=== PATIENT | male | born 1945 | race Caucasian/White ===

== ENCOUNTER → 2018-06-27 08:04 | Outpatient (CLI) | payer MEDICARE, BC, SELFPAY ==
[2018-06-27 08:55] LABS: Add Manual Diff / Slide Review NO; Basophils Percent Auto 1.2 % (0-2); Eosinophils Percent Auto 7.5 % (2-4); Hematocrit 44.2 % (41-53); Hemoglobin 14.5 g/dL (13.5-17.5); Lymphocytes Percent Auto 27.8 % (25-40); Mean Corpuscular HGB Conc 32.8 % (30-36); Mean Corpuscular Volume 88.5 fL (80-100); Monocytes Percent Auto 6.4 % (3-14); Neutrophils Absolute Auto 2500 /uL (1500-7000); Neutrophils Percent Auto 57.1 % (50-75); Platelet Count 231 X10^3/uL (150-400); Red Cell Distribution Width 12.5 % (11.6-14.8); White Blood Cell Count 4.4 X10^3/uL (4.5-11.0)
[2018-06-27 09:16] LABS: Alanine Aminotransferase 44 IU/L (21-72); Albumin 4.3 g/dL (3.5-5.0); Albumin Globulin Ratio 1.9 (1.0-2.8); Alkaline Phosphatase 60 U/L (38-126); Aspartate Aminotransferase 38 IU/L (17-59); Bilirubin Total 0.6 mg/dL (0.2-1.3); Blood Urea Nitrogen 21 mg/dL (9-20); Calcium 9.4 mg/dL (8.4-10.2); Carbon Dioxide 28 mmol/L (22-32); Chloride 102 mmol/L (98-107); Cholesterol 151 mg/dL (140-199); Estimated Glomerular Filt Rate > 60.0 mL/min (>60); Globulin 2.3 g/dL (1.7-4.1); Glucose 95 mg/dL (80-110); HDL Cholesterol 57 mg/dL (40-60); HEMOLYSIS < 15 (0-50); LDL Cholesterol Calculated 83 mg/dL (<100); Potassium 4.5 mmol/L (3.4-5.1); Sodium 139 mmol/L (137-145); Total Protein 6.6 g/dL (6.3-8.2); Triglycerides 57 mg/dL (35-150)
[2018-06-27 09:39] LABS: Prostate Specific Antigen 0.261 ng/mL (0.10-4.00)
== END ==
PROVIDERS: PCP Internal Medicine; Visit Provider Internal Medicine
DX: Z00.00 Encounter for general adult medical examination without abnormal findings (principal); I10 Essential (primary) hypertension; E78.00 Pure hypercholesterolemia, unspecified; R97.20 Elevated prostate specific antigen [PSA]
CPT/HCPCS: 36415; 80053; 80061; 84153; 85025

== ENCOUNTER → 2018-12-20 07:46 | Outpatient (CLI) | payer MEDICARE, BC, SELFPAY ==
[2018-12-20 09:13] LABS: Add Manual Diff / Slide Review NO; Basophils Absolute Auto 100 /uL (0-100); Eosinophils Absolute Auto 500 /uL (0-450); Eosinophils Percent Auto 9.7 % (2-4); Hematocrit 44.4 % (41-53); Hemoglobin 14.6 g/dL (13.5-17.5); Lymphocytes Absolute Auto 1400 /uL (1100-4500); Lymphocytes Percent Auto 26.1 % (25-40); Mean Corpuscular HGB Conc 32.9 % (30-36); Mean Corpuscular Hemoglobin 29.4 PG (26-34); Mean Corpuscular Volume 89.3 fL (80-100); Monocytes Absolute Auto 400 /uL (0-900); Monocytes Percent Auto 7.8 % (3-14); Neutrophils Absolute Auto 3000 /uL (1500-7000); Neutrophils Percent Auto 55.4 % (50-75); Platelet Count 214 X10^3/uL (150-400); Red Blood Cell Count 4.97 X10^6/uL (4.5-5.9); Red Cell Distribution Width 12.9 % (11.6-14.8); White Blood Cell Count 5.3 X10^3/uL (4.5-11.0)
[2018-12-20 09:41] LABS: Alanine Aminotransferase 26 IU/L (21-72); Albumin 4.4 g/dL (3.5-5.0); Albumin Globulin Ratio 1.8 (1.0-2.8); Alkaline Phosphatase 62 U/L (38-126); Aspartate Aminotransferase 31 IU/L (17-59); BUN Creatinine Ratio 28.6 (6-22); Bilirubin Total 0.7 mg/dL (0.2-1.3); Blood Urea Nitrogen 20 mg/dL (9-20); Calcium 9.4 mg/dL (8.4-10.2); Carbon Dioxide 30 mmol/L (22-32); Chloride 105 mmol/L (98-107); Cholesterol 175 mg/dL (140-199); Estimated Glomerular Filt Rate > 60.0 mL/min (>60); Globulin 2.5 g/dL (1.7-4.1); Glucose 97 mg/dL (80-110); HDL Cholesterol 49 mg/dL (40-60); HEMOLYSIS < 15 (0-50); LDL Cholesterol Calculated 110 mg/dL (<100); Potassium 4.6 mmol/L (3.4-5.1); Sodium 142 mmol/L (137-145); Total Protein 6.9 g/dL (6.3-8.2); Triglycerides 79 mg/dL (35-150)
[2018-12-20 10:05] LABS: Prostate Specific Antigen Scrn 0.307 ng/mL (0.1-4.0)
== END ==
PROVIDERS: Family Provider Student in an Organized Health Care Education/Training Program; PCP Internal Medicine; Visit Provider Student in an Organized Health Care Education/Training Program
DX: Z00.00 Encounter for general adult medical examination without abnormal findings (principal); E78.00 Pure hypercholesterolemia, unspecified; I10 Essential (primary) hypertension; Z12.5 Encounter for screening for malignant neoplasm of prostate
CPT/HCPCS: 36415; 80053; 80061; 85025; G0103

== ENCOUNTER 2019-01-30 09:03 | Day surgery (SDC) | payer MEDICARE, BC, SELFPAY ==
[2019-01-30 09:33] VITALS: BP 158/86; PULSE 72; RESP 16; TEMP 36.8; O2SAT 99; BMI 22.4
[2019-01-30] MEDS: SODIUM CHLORIDE 0.9% 1,000 ML 200 ML IV (09:45)
[2019-01-30] MEDS: FLEETS ENEMA 1 EACH PR (10:04)
--- NOTE | 2019-01-30 11:11 | PM.HP.1 ---
History of Present Illness Date Patient Seen: 01/30/19 Time Patient Seen: 11:11 Chief complaint: [address] SCREENING COLONOSCOPY Narrative: Patient presents for colorectal screening. His prior colonoscopy was 11 years ago and notable only for diverticulosis. On further history denies any recent gastrointestinal symptoms. No nausea, vomiting, abdominal pain, loss of appetite, unexplained weight loss, change in bowel habits, diarrhea, constipation, melena, hematochezia, or bright red blood per rectum. Patient History Medical History Anxiety (Acute) Inguinal hernia (Acute) Social History household members: none Family & Social History Social History: household members none Meds Home Medications Medication Instructions Recorded Confirmed Type cholecalciferol (vitamin D3) 1,000 iu PO Q DAY #0 11/03/10 01/30/19 History [Vitamin D3] ibuprofen [Motrin IB] 200 mg PO Q6H PRN 01/30/19 01/30/19 History metronidazole 1 applic TOPICAL BID 01/30/19 01/30/19 History sildenafil (antihypertensive) 2 tab PO PRN PRN 01/30/19 01/30/19 History triamcinolone acetonide [Nasacort] 1 spray INTRANASAL PRN PRN 01/30/19 01/30/19 History Allergies Allergy/AdvReac Type Severity Reaction Status Date / Time duloxetine Allergy Severe Rash Verified 01/30/19 09:52 ciprofloxacin Allergy Mild itching Verified 01/30/19 09:52 nickel Allergy Mild Rash Verified 01/30/19 09:52 tree and shrub pollen Allergy Mild Sneezing Verified 01/30/19 09:52 escitalopram AdvReac Mild lightheaded Verified 01/30/19 09:52 Review of Systems Review of Systems All systems reviewed & are unremarkable except as noted in HPI and below Exam Vital Signs (past 8 hours): - 01/30/19 09:33 Temperature 98.2 F Pulse Rate 72 Respiratory Rate 16 Blood Pressure 158/86 H Pulse Oximetry 99 Oxygen Delivery Method Room Air Narrative Exam Narrative: General-adult male no acute distress, well nourished HEENT-moist mucous membranes, no scleral icterus Neck-supple with full range of motion, no lymphadenopathy Chest- no labored respirations, clear to auscultation bilaterally Cardiac-regular rate and rhythm Abdomen-soft, nontender, non distended Extremities-no edema, warm well perfused Neurological-alert and oriented x 3. No focal deficits Skin-normal temperature and turgor, no rashes or ulcers Assessment & Plan (1) Screening for colorectal cancer: Current visit: Yes Status: Acute Assessment & Plan narrative: Patient is requiring colorectal screening. Colonoscopy is recommended. Technical details were discussed. Risks, benefits, alternatives explained. Risks including but not limited to sedation, aspiration, bleeding, pain, missed lesion, incomplete examination, need for further radiographic studies, colonic perforation, need for major abdominal surgery, and all attendant risks major surgery were discussed at length. All questions were answered to their satisfaction, and they voiced understanding.
--- NOTE | 2019-01-30 11:20 | SUR.OPER ---
GLASSES IN LABELED BAG TO PACU WITH PATIENT.
[2019-01-30] MEDS: MIDAZOLAM 5 MG/5 ML VIAL IV (11:34)
[2019-01-30] MEDS: fentaNYL 250 MCG/5 ML INJ IV (11:35)
--- NOTE | 2019-01-30 11:37 | PM.OP.ENDO ---
Operative Date/Time/Diagnoses Date of procedure: 01/30/19 Time of procedure: 11:37 Pre-op diagnosis: Routine screening Post-op diagnosis: same Procedure & Clinicians Study performed: colonoscopy Same procedure as scheduled: Yes Indications: Last colonoscopy 11 years ago Surgeon: Stewart Parson Procedure Notes SCOAP/Timeout: performed Procedure in detail: Digital rectal exam was performed which was normal. The scope was placed into the anus advanced through the rectum. The quality of the prep was poor. Despite continued irrigation and flushing was unable to improve the quality of the prep. After 15 minutes procedure was aborted. I was concerned that I could cause injury advancing without adequate visualization. Have the patient prepped again and return for his colonoscopy Scope withdrawal time: not applicable Sedation minutes: 18 Findings: other findings (poor preparation) Specimen(s): none sent Impression: non diagnostic colonoscopy Recommendations: Other recommendation (repeat prep and reschedule for colonoscopy) Disposition: same day surgery
[2019-01-30 11:38] VITALS: BP 109/72; PULSE 76; RESP 22; TEMP 36.7; O2SAT 99
[2019-01-30 11:43] VITALS: BP 102/66; PULSE 73; RESP 17; O2SAT 96
[2019-01-30 11:50] VITALS: BP 115/75; PULSE 69; RESP 21; TEMP 36.5; O2SAT 99
[2019-01-30 12:05] VITALS: BP 126/77; PULSE 69; RESP 15; TEMP 37.1; O2SAT 100
[2019-01-30 12:20] VITALS: BP 124/72; PULSE 68; RESP 16; TEMP 36.9; O2SAT 99
== END 2019-01-30 12:30 | disposition home or self-care (01) ==
PROVIDERS: Family Provider Student in an Organized Health Care Education/Training Program; PCP Internal Medicine; Visit Provider Surgery
PROC: 0DJD8ZZ Inspection of Lower Intestinal Tract, Via Natural or Artificial Opening Endoscopic (ICD-10-PCS; CPT 45378; principal; 2019-01-30 10:45)
DX: Z12.11 Encounter for screening for malignant neoplasm of colon (principal)
CPT/HCPCS: G0104; 99152; J2250; J3010

== ENCOUNTER → 2019-07-13 10:13 | Outpatient (CLI) | payer MEDICARE, BC, SELFPAY ==
[2019-07-13 11:04] LABS: Cholesterol 185 mg/dL (140-199); HDL Cholesterol 46 mg/dL (40-60); LDL Cholesterol Calculated 119 mg/dL (<100); Triglycerides 100 mg/dL (35-150)
== END ==
PROVIDERS: Family Provider Student in an Organized Health Care Education/Training Program; PCP Internal Medicine; Visit Provider Internal Medicine
DX: E78.00 Pure hypercholesterolemia, unspecified (principal); M17.10 Unilateral primary osteoarthritis, unspecified knee
CPT/HCPCS: 36415; 80061

== ENCOUNTER → 2019-08-08 08:56 | Outpatient (CLI) | payer MEDICARE, BC, SELFPAY ==
[2019-08-08 10:34] LABS: Cholesterol 150 mg/dL (140-199); HDL Cholesterol 50 mg/dL (40-60); LDL Cholesterol Calculated 83 mg/dL (<100); Triglycerides 86 mg/dL (35-150)
== END ==
PROVIDERS: Family Provider Student in an Organized Health Care Education/Training Program; PCP Internal Medicine; Referring Provider Internal Medicine; Visit Provider Internal Medicine
DX: E78.00 Pure hypercholesterolemia, unspecified (principal)
CPT/HCPCS: 36415; 80061

== ENCOUNTER → 2020-08-10 08:43 | Outpatient (CLI) | payer MEDICARE, BC, SELFPAY ==
[2020-08-10 09:39] LABS: Add Manual Diff / Slide Review NO; Basophils Absolute Auto 100 /uL (0-100); Basophils Percent Auto 2.1 % (0-2); Eosinophils Absolute Auto 400 /uL (0-450); Eosinophils Percent Auto 7.9 % (2-4); Hematocrit 45.8 % (41-53); Hemoglobin 15.1 g/dL (13.5-17.5); Lymphocytes Absolute Auto 1600 /uL (1100-4500); Lymphocytes Percent Auto 27.9 % (25-40); Mean Corpuscular HGB Conc 32.9 % (30-36); Mean Corpuscular Hemoglobin 29.1 PG (26-34); Mean Corpuscular Volume 88.4 fL (80-100); Monocytes Absolute Auto 500 /uL (0-900); Monocytes Percent Auto 9.2 % (3-14); Neutrophils Absolute Auto 3000 /uL (1500-7000); Neutrophils Percent Auto 52.9 % (50-75); Platelet Count 243 X10^3/uL (150-400); Red Blood Cell Count 5.19 X10^6/uL (4.5-5.9); Red Cell Distribution Width 12.6 % (11.6-14.8); White Blood Cell Count 5.7 X10^3/uL (4.5-11.0)
[2020-08-10 10:02] LABS: Alanine Aminotransferase 28 IU/L (<50); Albumin 4.5 g/dL (3.5-5.0); Albumin Globulin Ratio 1.8 (1.0-2.8); Alkaline Phosphatase 76 U/L (38-126); Aspartate Aminotransferase 36 IU/L (17-59); BUN Creatinine Ratio 32.9 (6-22); Bilirubin Total 0.6 mg/dL (0.2-1.3); Blood Urea Nitrogen 23 mg/dL (9-20); Calcium 9.4 mg/dL (8.4-10.2); Carbon Dioxide 31 mmol/L (22-32); Chloride 100 mmol/L (98-107); Cholesterol 148 mg/dL (140-199); Estimated Glomerular Filt Rate > 60.0 mL/min (>60); Globulin 2.5 g/dL (1.7-4.1); Glucose 97 mg/dL (80-110); HDL Cholesterol 63 mg/dL (40-60); HEMOLYSIS < 15 (0-50); LDL Cholesterol Calculated 73 mg/dL (<100); Potassium 4.6 mmol/L (3.4-5.1); Sodium 136 mmol/L (137-145); Triglycerides 61 mg/dL (35-150)
== END ==
PROVIDERS: Family Provider Student in an Organized Health Care Education/Training Program; PCP Internal Medicine; Referring Provider Internal Medicine; Visit Provider Internal Medicine
DX: I10 Essential (primary) hypertension (principal); G47.33 Obstructive sleep apnea (adult) (pediatric); E78.2 Mixed hyperlipidemia
CPT/HCPCS: 36415; 80053; 80061; 85025

== ENCOUNTER → 2020-10-16 07:41 | Outpatient (CLI) | payer MEDICARE, BC, SELFPAY ==
[2020-10-16 08:35] LABS: Hemoglobin A1C% w Est Avg Glu 5.8 % (4.0-6.0)
[2020-10-16 08:41] LABS: Add Manual Diff / Slide Review NO; Basophils Absolute Auto 100 /uL (0-100); Basophils Percent Auto 1.8 % (0-2); Eosinophils Absolute Auto 300 /uL (0-450); Eosinophils Percent Auto 5.9 % (2-4); Hematocrit 41.8 % (41-53); Hemoglobin 13.9 g/dL (13.5-17.5); Lymphocytes Absolute Auto 1300 /uL (1100-4500); Mean Corpuscular HGB Conc 33.3 % (30-36); Mean Corpuscular Hemoglobin 29.1 PG (26-34); Mean Corpuscular Volume 87.4 fL (80-100); Monocytes Absolute Auto 400 /uL (0-900); Monocytes Percent Auto 6.8 % (3-14); Neutrophils Absolute Auto 3200 /uL (1500-7000); Neutrophils Percent Auto 60.5 % (50-75); Platelet Count 222 X10^3/uL (150-400); Red Blood Cell Count 4.78 X10^6/uL (4.5-5.9); Red Cell Distribution Width 12.9 % (11.6-14.8); White Blood Cell Count 5.3 X10^3/uL (4.5-11.0)
[2020-10-16 08:46] LABS: BUN Creatinine Ratio 24.6 (6-22); Blood Urea Nitrogen 16 mg/dL (9-20); Calcium 9.2 mg/dL (8.4-10.2); Carbon Dioxide 32 mmol/L (22-32); Chloride 101 mmol/L (98-107); Estimated Glomerular Filt Rate > 60.0 mL/min (>60); Glucose 106 mg/dL (80-110); HEMOLYSIS < 15 (0-50); Potassium 4.3 mmol/L (3.4-5.1); Sodium 137 mmol/L (137-145)
== END ==
PROVIDERS: Family Provider Student in an Organized Health Care Education/Training Program; PCP Internal Medicine; Referring Provider Orthopaedic Surgery Adult Reconstructive Orthopaedic Surgery; Visit Provider Orthopaedic Surgery Adult Reconstructive Orthopaedic Surgery
DX: R73.9 Hyperglycemia, unspecified (principal); Z01.812 Encounter for preprocedural laboratory examination; Z01.818 Encounter for other preprocedural examination
CPT/HCPCS: 36415; 80048; 83036; 85025; 93005

== ENCOUNTER → 2020-10-28 09:08 | Outpatient (CLI) | payer MEDICARE, BC, SELFPAY ==
[2020-10-28 11:26] LABS: COVID19 -Nasal RAPID Negative (Negative)
== END ==
PROVIDERS: Family Provider Student in an Organized Health Care Education/Training Program; PCP Internal Medicine; Visit Provider Student in an Organized Health Care Education/Training Program
DX: Z01.812 Encounter for preprocedural laboratory examination (principal); Z20.822 Contact with and (suspected) exposure to COVID-19
CPT/HCPCS: 87635; C9803

== ENCOUNTER 2020-10-30 08:54 | Day surgery (SDC) | payer MEDICARE, BC, SELFPAY ==
[2020-10-22 13:59] VITALS: BMI 22.8
[2020-10-22 14:46] VITALS: BMI 22.8
[2020-10-30] VITALS (17 sets, daily range): BP systolic 111–163; BP diastolic 79–97; PULSE 63–93; RESP 10–18; TEMP 35.3–37.4; O2SAT 92–100; BMI 22.8
[2020-10-30] MEDS: LACTATED RINGERS 1,000 ML 42 ML IV (09:44)
--- NOTE | 2020-10-30 09:57 | DI.RAD.S_ITS ---
PROCEDURE: XR KNEE LT 1TO2V INDICATIONS: post-op TECHNIQUE: 2 view(s) of the knee acquired. COMPARISON: None. FINDINGS: Bones: Patient is status post knee joint arthroplasty. Hardware components are in expected positions. Visualized bony structures are intact. Soft tissues: Overlying postoperative changes are noted. IMPRESSION: Normal alignment after left total knee arthroplasty performed earlier same day. Dictated by: Raffi Sal M.D. on 10/30/2020 at 14:02 Approved by: Raffi Sal M.D. on 10/30/2020 at 14:02
--- NOTE | 2020-10-30 09:58 | PM.PREOP ---
Pre-operative Note COVID-19 COVID-19 status: Negative Result date/Date tested (Pos, Neg/Pending): 10/28/20 Interval Note History & Physical reviewed/Exam performed by Physician: Yes Changes to H&P: No H&P completed within 30 days and has changed as indicated here:: Plan for Left TKA
--- NOTE | 2020-10-30 10:18 | SUR.PREOP ---
PO preop pain meds ordered not given per Dr. Collins.
[2020-10-30] MEDS: CEFAZOLIN 2 GM/100 ML FROZ.PIGGY IV (10:24)
--- NOTE | 2020-10-30 10:58 | SUR.OPER ---
Supine on padded OR bed. Pillow under head, arms secured on padded armboards <90 degree abduction. Safety belt across torso. Non-operative leg secured with tape over blanket over lower leg. Operative leg on foam positioner. Foam padded brace at thigh of operative leg.
[2020-10-30] MEDS: ACETAMINOPHEN IV 1,000 MG/100 ML VIAL 400 MG IV (10:59)
[2020-10-30] MEDS: KETOROLAC 30 MG/ML VIAL IV (11:09)
[2020-10-30] MEDS: ROPIVACAINE 0.5% PF 5 MG/ML 20ML VIAL 60 ML INJ (11:09)
[2020-10-30] MEDS: MORPHINE 4 MG/ML INJ INJ (11:09)
[2020-10-30] MEDS: TRANEXAMIC ACID 1,000 MG VIAL 2000 MG INJ ×2 (11:10→12:23)
[2020-10-30] MEDS: VANCOMYCIN 1,000 MG VIAL 1000 MG TOP (11:45)
--- NOTE | 2020-10-30 12:28 | PM.OP.1 ---
Operative Date/Time/Diagnoses Date of procedure: 10/30/20 Time of procedure: 12:28 Pre-op diagnosis: Left knee OA Post-op diagnosis: same Procedure & Clinicians Procedure: L TKA Same procedure as scheduled: Yes Indications: Left knee OA, resistant to further conservative measures. Surgeon: Amanuel Magaña Steward/Stewardess Bath: Jin Rubin Anesthesia Type: General and Spinal Operative Notes Findings: Left knee osteoarthritis with varus alignment, [id number] articulation in the medial compartments with large osteophytes. Closure Type: primary Specimen(s): none sent Prosthetic devices, grafts, tissues, transplants, or devices: Zarate and Nephew size 8 left Journey II BCS femoral component Size 6 left Journey tibial base plate 35 mm oval Crystal 2 patellar button Left size 5-611 mm thick Journey 2 BCS polyethylene Estimated Blood Loss (mL): 50 Tourniquet time (min): 67 Procedure in detail: Patient was met in the preoperative holding area where the site and side of surgery was marked by MD. All last minute questions were answered. Informed consent had been reviewed and signed in clinic but was also reviewed the preop holding area. Patient was then brought back to the operating room where he received a spinal anesthetic he was then placed supine on operating room table induced under general anesthesia. A nonsterile tourniquet was then placed on left thigh and left lower extremity was then prepped and draped in normal sterile fashion. Surgical time-out performed verifying the site and side of surgery as well as the name of the patient. The left lower extremity was exsanguinated using an Esmarch and a tourniquet was inflated 250 mm mercury. A longitudinal incision over the anterior aspect of the knee was made skin using 10. Blade a new 10. Blade was then used to me elevate medial and lateral flaps. The medial parapatellar arthrotomy was then marked and made with a new 10. Blade. Hoffa's fat pad was then removed and a medial peel was performed the medial peel was quite extensive as he has overall varus alignment of the knee which was not correctable on preop exam. The lateral meniscus was then removed as well as the ACL. Notch osteophytes were then also removed. Yaima's line was then marked with electrocautery and entry site for the femoral and tibial drill was then made. Drill was then used to enter the femur canal as well as the tibial canal. Intramedullary shy was then placed inside the femur for our distal femoral cut. This was then pinned in place in the neutral slot cut in neutral position. The intramedullary shy was then removed and placed inside the tibia the out local company flatbed truck driver was then used to place our cutting jig for the our proximal tibia cut. Drop shy was used to confirm alignment this was then pinned in place and oscillating saw was then used to make the proximal tibia cut. Cut was then removed PCL remained intact. The knee was then brought into full extension and a 9 mm block was able to fit on the lateral side but still quite tight on the medial side. Further medial peel was then performed again checking the alignment which showed that we were tight on the medial side. Removal of some medial osteophytes was then performed. And this improved our alignment somewhat. The femur was then sized to a size 8 gap instructor ground services was then used. Fin holes for the 5 1 cutting block we then made. Size 8 5 in 1 cutting block was then placed and the 5 in 1 cuts were then made sequentially. A CR femoral component was then placed and the notch was then cut for the Journey 2 CR femoral component. I then attempted to trial with polyethylene and the knee was exceptionally tight in flexion on the medial side was still tight on the medial side in extension. At this point I elected to convert to a PCS so we could remove the PCL as a secondary medial constrained. This was then performed the femur was then prepped for a PCS femoral component. This did improve our balancing although still was not totally corrected. The tibial tray was marked using floating technique. The patella was then freehand cut and sized to size 35 mm patellar button this was then drilled and a trial was then placed and knee was brought through range of motion. There was a little bit of lift-off of the patella and a small lateral release was then performed. This corrected the left off. The trial components were then removed I then downsized to a size 6 tibial base plate and then performed a reduction osteotomy of the medial tibia using a reciprocating saw. The size 6 tibial base plate was then drilled and punched and bone fracture placed inside the tibial canal to prevent excess cement extrusion. Tibial base plate was then removed the cut surface of the femur tibia and patella were then thoroughly irrigated with pulse lavage normal saline. And local anesthetic was then infiltrated into the periarticular soft tissues. Cement was then mixed. The cut surface of the femur tibia and patella were then thoroughly dried cement was then finger packed into the keel hole as well as the cut surface of the tibia and cement was placed on the undersurface of the tibial tray pinned this in malleted into place and excess cement was removed. Cement was then placed on the cut surface of the femur with exception of the posterior condylar cut stem was placed on the feet of the femoral component malleted into place excess cement was then removed the size 9 B CS polyethylene was then placed knee was brought into full extension and ankles held in internal rotation. Cement was then finger packed on the cut surface of patella as well as between the patellar pegs on the patellar button and clamped into place. Excess cement was removed. Betadine solution was then placed in the wound and the cement was allowed to fully cure. once the cement fully cured the tourniquet was let down and pulse lavage normal saline was used to thoroughly irrigate the knee the knee was then brought through final range of motion I then decided to trial with a size 10 and ultimately a size 11 polyethylene. The size 11 thick polyethylene gave us our best stability and still able to achieve full extension. This was then placed making sure that the medial lateral tabs were well engaged. Hemostasis was achieved using electrocautery. The medial parapatellar arthrotomy was then closed using 1. Vicryl interrupted fashion followed by running Quill suture followed by 2 Vicryl in interrupted fashion the subcutaneous tissue followed by running 3-0 Stratafix followed by Dermabond and Aquacel dressing. Complications: none Post-operative Condition: stable Disposition: PACU Plan for aftercare: 24 hours post-op abx, WBAT LLE, ASA 81mg BId for 6 weeks for DVT prophylaxis
[2020-10-30] MEDS: OXYCODONE IR 5 MG TABLET PO (13:15)
[2020-10-30] MEDS: ONDANSETRON 4 MG/2 ML INJ IV (13:15)
[2020-10-30] MEDS: IBUPROFEN 400 MG TABLET PO ×3 (14:27→20:52)
[2020-10-30] MEDS: ACETAMINOPHEN 325 MG TABLET 650 MG PO ×2 (14:27→20:52)
[2020-10-30] MEDS: LACTATED RINGERS 1,000 ML 100 ML IV ×2 (14:28→22:08)
--- NOTE | 2020-10-30 15:08 | PC.NURSE ---
Assess- Patient to floor at 1335, he had a left total knee replacement. He is alert and oriented x3. Denies pain, given tylenol and ibuprofen around 1400. Aquacel with acewrap in place, LR at 100cc/hr and patient has been admitted to the floor. His blood pressure has been running in the 150s/90s. Daina Tierney aware.
[2020-10-30] MEDS: CEFAZOLIN 1 GM VIAL 2 GM IV (18:23)
[2020-10-30] MEDS: ASPIRIN EC 81 MG TABLET PO (20:52)
[2020-10-30] MEDS: ATORVASTATIN 20 MG TABLET 10 MG PO (20:52)
[2020-10-30] MEDS: DOCUSATE 100 MG CAPSULE PO (20:52)
[2020-10-31] MEDS: IBUPROFEN 400 MG TABLET PO ×3 (00:23→08:38)
--- NOTE | 2020-10-31 00:45 | PC.NURSE ---
patient is alert and oriented. Breath sounds CTA with RA sat of 100%; on continuous oximetry per epidural anesthesia orders. HRR. BP elevated at 144/94 but has improved from earlier readings. Denies nausea. BT present and is passing flatus. Denies dysuria, frequency or urgency but states he is having urinary hesitancy; using urinal and urine is clear, yellow. Able to move himself in bed. Gait not assessed at this time. Aquacel dressing covered with perlita wrap to left knee is CDI. CMS is intact bilaterally. Denies pain but does have ice pack to knee and is receiving scheduled Ibuprofen. Wearing bilateral calf SCD's. Fall risk score is moderate and bed alarm is activated
[2020-10-31] MEDS: CEFAZOLIN 1 GM VIAL 2 GM IV (02:18)
[2020-10-31] MEDS: OXYCODONE IR 5 MG TABLET PO ×2 (05:11→11:12)
[2020-10-31 05:15] VITALS: BP 137/80; PULSE 87; RESP 18; TEMP 36.2; O2SAT 97
[2020-10-31 07:38] LABS: Hematocrit 37.5 % (41-53); Hemoglobin 12.5 g/dL (13.5-17.5)
[2020-10-31 08:30] VITALS: BP 154/81; PULSE 62; RESP 17; TEMP 36.6; O2SAT 99
--- NOTE | 2020-10-31 08:32 | CM.DANOTE ---
DCP; Case received, EMR reviewed and met with patient. Introduced self and role. Was able to obtain information regarding patient's baseline activity status prior to surgery, as well as his current living situation. DCP assessment completed with information currently available. Patient is a 75 year old male who admitted yesterday morning to the care of the orthopedic team. PCP: Dr. Kay. Payer: confirmed: Medicare/[employer] [facility]. Patient came to the hospital via private vehicle for a surgical procedure. He had left total knee arthroplasty. Patient has history of osteoarthritis. Met with patient in his room. He is alert and oriented, pleasant. Patient resides here in [place] alone, but mentioned that he has a neighbor named Andrés, that will give him assistance when he gets home. 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 He mentioned that he has a couple of steps with rails to get into his back porch when he goes home. He still does projects around his house. He mentioned that he is set up for [facility] outpatient. P: DCP to continue to follow for any needs. He will be working with P.T. He should be able to go home when he is deemed medically stable and cleared by P.T. Martha Faustin RN/Solar Maintenance Technician
[2020-10-31 08:38] VITALS: BP 154/91
[2020-10-31] MEDS: ASPIRIN EC 81 MG TABLET PO (08:38)
[2020-10-31] MEDS: LOSARTAN 25 MG TABLET PO (08:38)
[2020-10-31] MEDS: ACETAMINOPHEN 325 MG TABLET 650 MG PO (08:39)
[2020-10-31] MEDS: DULOXETINE 30 MG CAPSULE 60 MG PO (08:39)
[2020-10-31] MEDS: DOCUSATE 100 MG CAPSULE PO (08:39)
--- NOTE | 2020-10-31 09:24 | PM.PNPO.1 ---
Subjective Subjective Date Patient Seen: 10/31/20 Time Patient Seen: 09:24 Interval history: Patient states he is doing well overall and is in minimal discomfort. At this time the patient denies fever, chills, nausea, chest pain, shortness of breath, or urinary retention. Patient reports good sensation throughout the bilateral lower extremities. The patient explains that he is looking for to working with physical therapy and ultimately being discharged home today. Exam Vital Signs (past 8 hours): - 10/31/20 05:15 10/31/20 08:38 Temperature 97.1 F L Pulse Rate 87 Respiratory Rate 18 Blood Pressure 137/80 154/91 H Pulse Oximetry 97 Oxygen Delivery Method Room Air Oxygen Flow Rate 0 Narrative Exam Narrative: Pleasant 75-year-old male postop day 1 status post left total knee arthroplasty. Patient is resting comfortably in chair, is in no acute distress, is alert and oriented x3. Skin is warm and dry, and the skin surrounding the incision site is free of erythema, warmth, induration, or discharge. The dressing over the incision is free of strike urine is clean and dry. Good sensation appreciated throughout the bilateral lower extremities to light touch. Ankle dorsiflexion, plantar flexion, eversion, inversion performed bilaterally without difficulty or discomfort. Calves are soft and nontender, negative Homans sign. Capillary refill less than 2 seconds, palpable pulses appreciated. No other signs of DVT appreciated. Const General: cooperative, healthy appearing and comfortable Resp Effort & Inspection: normal respiratory effort and able to speak in complete sentences Skin General: no rashes or lesions noted Objective Labs Result Diagrams: 10/31/20 06:20 Labs: Laboratory Results - last 24 hr 10/31/20 06:20 Hgb 12.5 L Hct 37.5 L PFSH Medical History Actinic keratosis Anxiety Cataracts, bilateral Depression HLD (hyperlipidemia) HTN (hypertension) Inguinal hernia Meniere's disease [place] (obstructive sleep apnea) Osteoarthritis Pneumonia SCC (squamous cell carcinoma) Thyroid tumor, benign (~1969) Surgical History History of surgery (~1997) Hx of blepharoplasty Hx of left inguinal hernia repair Social History household members: none Smoking Status: Former smoker alcohol intake: current Assessment & Plan Post-op Postoperative Procedures: Procedures Operation Date: 10/30/20 10:45 Actual Procedures Side Surgeon p Total Knee Arthroplasty Left Amanuel Magaña MD Postoperative day: 1 Postoperative status: doing well Postoperative plan: ambulate Postoperative plan narrative: Patient is to continue working with physical therapy on ambulation with the assistance of a front wheeled walker. Additionally, the patient is to work on stair [place] with physical therapy today. Patient is to continue his current pain management regimen as it is adequately controlling the patient's pain level at this time. Aspirin 81 mg twice daily is to be continued for DVT prophylaxis. Plan for discharge today pending successful visit with physical therapy. Time Spent With Patient Time with patient: 15-24 minutes
--- NOTE | 2020-10-31 09:43 | PT.IIE ---
Current Diagnoses Unilateral primary osteoarthritis, left knee (10/30/20) Surgery Performed Operation Date: 10/30/20 10:45 Actual Procedures p Total Knee Arthroplasty(Left) - Amanuel Magaña MD Surgical History (Last Reviewed 10/31/20 @ 09:25 by Nikolai Antonio PA-C) History of surgery (~1997) Hx of blepharoplasty Hx of left inguinal hernia repair Medical History (Last Reviewed 10/31/20 @ 09:25 by Nikolai Antonio PA-C) Actinic keratosis Anxiety Cataracts, bilateral Depression HLD (hyperlipidemia) HTN (hypertension) Inguinal hernia Meniere's disease GUADALUPE (obstructive sleep apnea) Osteoarthritis Pneumonia SCC (squamous cell carcinoma) Thyroid tumor, benign (~1969) Physical Therapy Inpatient Evaluation/Re-Eval M1 PT/OT-IP Prior Functional Status Start: 10/31/20 08:52 Freq: NEEDED Status: Active Protocol: Document 10/31/20 09:43 AW (Rec: 10/31/20 10:03 AW [id number]) Medical Review Prior Functional Status Medical History Reviewed Yes Communication WNL. Pt is an effective verbal communicator Mobility and Gait Independent without AD. Pt notes declining endurance related to pain over the past six months. Activities of Daily Living and IADL's Independent including driving. Social History Household Members none Living Arrangements House Number of Floors (Floors) 3 or More Floors Number of Stairs To Enter/Railing? 3 MATHEW with R rail ascending. 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 Home Environment High Toilet,Walk in Shower Home Equipment Front Wheel Walker,Straight Cane,Crutches,Grab Bars Near Toilet Employment Status Retired Additional Social History Comment Pt lives alone but has several neighbors and a brother who will check on him frequently. He has planned ahead and prepped meals, rearranged his home, and removed problematic floor rugs in preparation for recovery. M2 PT-IP Current Condition Start: 10/31/20 08:52 Freq: NEEDED Status: Active Protocol: Document 10/31/20 09:43 AW (Rec: 10/31/20 10:03 AW [id number]) Physical Therapy Current Condition Current Condition Evaluation Date 10/31/20 Treatment Diagnosis L TKA; impaired mobility and gait Onset Date 10/30/20 Weight Bearing Status Weight Bearing Status Weight Bear as Tolerated Allowed Weight Bearing Amount (enter % WBAT LLE or #) (%) M3 PT-IP Subjective Start: 10/31/20 08:52 Freq: NEEDED Status: Active Protocol: Document 10/31/20 09:43 AW (Rec: 10/31/20 10:03 AW [id number]) Subjective Physical Therapy Visit Type Type Initial Evaluation Visit Start Time 09:13 Visit Stop Time 09:43 Total Visit Minutes 30 Physical Therapy Visit Comments Patient Comments Pt is willing to participate with PT Patient Goals Return home with neighbors providing assist Therapy Pain Assessment Pain When Pain Assessed During Mobility Pain Present Pain Present Pain Reported Location Left Knee Scale Used stiff and sore Pain Management Techniques Apply Cold,Timing of Activity with Medications M4 PT-IP Mobility and Gait Start: 10/31/20 08:52 Freq: NEEDED Status: Active Protocol: Document 10/31/20 09:43 AW (Rec: 10/31/20 10:03 AW [id number]) PT-Bed Mobility Assessment Supine to Sit Supine to Sit Standby Assistance Sit to Supine Sit to Supine Standby Assistance PT-Transfer Assessment Sit to and From Stand Sit to and from Stand Standby Assistance,Use of Upper Extremities Equipment Transfer Assistive Device Gait Belt,Front Wheeled Walker Orthotic/Prosthetic Devices or Brace: No Transfers Transfer Destination Bed,Chair Transfer Technique Stand Step Pivot Transfer Ability Level of Assist Standby Assistance Comments Mobility Comments Pt was sitting up in the chair as PT arrived. He completed sit to stand and used FWW to ambulate 230 feet in the hallway SBA. On return to the room, he demonstrated SBA supine <> sit and then transferred back to the chair SBA. Gait Assessment Gait Gait Assistance Required: Standby Assistance,Contact Guard Assist Distance (Feet) 230 Able to Maintain Weight Bearing Status Yes During Gait Assistive Devices Assistive Device Gait Belt,Front Wheeled Walker Orthotic/Prosthetic Devices or Brace: No Gait Deviations General Gait Pattern Antalgic,Flexed Trunk,Step-to Gait Factors Limiting Gait Function Factors Limiting Gait Function Decreased Strength,Pain Comments Gait Comments Pt ambulated with good step through patterning SBA. He had decreased knee flexion in initial swing but responded well to verbal cues. He did have one lateral LOB when transitioning from the stairs to the FWW. Pt stated he was not thinking about how light the walker was and depended on it to support him from the side. Educated pt about staying inside the walker frame and maintaining safe distance from the front. Stair Climbing Assessment Evaluation Level of Assist On Stairs Standby Assistance Devices Stair Climbing Assistive Devices Right Railing Technique/Endurance Stair Climbing Direction Ascend and Descend Stair Climbing Technique Step to Step Number of Steps Climbed 3 Query Text: Stair Climbing Set # Repetitions (reps) 2 Comments Stair Climbing Comments After brief education, pt was able to navigate stairs SBA with good patterning and no additional cues. PT-Balance Assessment Sitting Balance and Reactions Static Sitting Balance Ability Normal Dynamic Sitting Balance Ability Normal Standing Balance and Reactions Static Standing Balance Ability Good Dynamic Standing Balance Ability Good Device Used FWW Balance Tests Single Limb Standing RLE >15 sec; LLE same with FWW support M5 PT-IP Objective Assessments Start: 10/31/20 08:52 Freq: NEEDED Status: Active Protocol: Document 10/31/20 09:43 AW (Rec: 10/31/20 10:03 AW [id number]) Orientation Orientation/Cognition Level of Alertness Alert Orientation Name,Day of Week,Place, Situation Language Function Ability No Deficits Noted Safety Awareness Understands Safety Issues Memory Description No Deficits Noted Gross Range of Motion Lower Extremity ROM Assessment Left Impaired Strength Lower Extremity Strength Assessment Left Impaired Hip 4+/5 Knee 3/5 Ankle 4+/5 Comments Strength Comments RLE grossly 5/5 Sensation Assessment Sensation Gross Sensation WNL M6 PT-IP Treatment Start: 10/31/20 08:52 Freq: NEEDED Status: Active Protocol: Document 10/31/20 09:43 AW (Rec: 10/31/20 10:03 AW [id number]) Physical Therapy Treatment Exercises Exercises Ankle Pumps,Quad Sets,Heel Slides,Passive Knee Extension Hang,Seated Knee Flexion/ Extension Education Education Provided Precautions,Weight Bearing Status,Post-Op Packet,Safety Other Treatments Other Treatment Performed Educated pt on PT plan of care , WB status, recommendation for use of FWW until evaluated by outpatient PT. M7 PT-IP Assessment and Plan Start: 10/31/20 08:52 Freq: NEEDED Status: Active Protocol: Document 10/31/20 09:43 AW (Rec: 10/31/20 10:03 AW [id number]) PT Summary Assessment and Plan Potential Rehabilitation Potential Excellent Status of Condition at Evaluation Stable Summary Impairments Pain,ROM,Strength,Balance, Transfers,Gait Assessment Summary Enrike is a 75 yo man seen for PT evaluation on POD1 following L TKA. PLOF: Pt is independent in all regards. CLOF: Pt presents with decreased strength and ROM LLE . He required SBA with all mobility using FWW. Pt has neighbors and family to provide prn assist at home. He is safe to discharge with assist and outpatient PT once medically stable. Frequency of Treatment Frequency Of Treatment Discharge Precautions Other Precautions WBAT LLE Recommendations To Nursing Amount of Assist Needed Standby Assistance Discharge Recommendations PT Discharge Recommendations Home with Assistance, Outpatient PT Transportation Needs at Discharge Private Vehicle
--- NOTE | 2020-10-31 10:01 | P.DS_ITS ---
History of Present Illness History of Present Illness Date Patient Seen: 10/31/20 Time Patient Seen: 10:01 Chief complaint: Left Total Knee Arthroplasty *OPB* Narrative: Refer to previous HPI. Discharge Providers Provider Discharge Date: 10/31/20 Primary care physician: Emiliano Kay MD Consults: 10/30/20 09:56 Consult to Anesthesiology Routine Comment: Consulting Provider: Anesthesiologist Reason for consultation: Regional block for post operative pain control 10/30/20 13:49 Consult to Discharge Planning Routine Comment: Consult to Physical Therapy Evaluate & Treat Comment: Physician Instructions: postop TKA protocol Consult to Respiratory Therapy Evaluate & Treat Comment: Physician Instructions: Evaluate and treat Discharge provider: Nikolai Antonio PA-C Summary Hospital Course Discharge Diagnosis: Left knee osteoarthritis Status post left total knee arthroplasty Hospital Course: Patient was admitted the hospital following the above-listed procedure for the above-listed diagnosis. Following the procedure the patient has been convalescing appropriately his pain has been managed with his current pain control regimen. Patient is successfully worked on ambulation with the assistance of a front wheeled walker with physical therapy. Aspirin 81 mg twice daily has been administered for DVT prophylaxis. Throughout the course of his stay in the hospital the patient has denied fever, chills, nausea, chest pain, shortness of breath, or urinary retention. Patient has remained weight-bearing as tolerated. Status at Discharge Cognitive/behavioral status at discharge: oriented Functional status at discharge: uses cane/walker Overall status at discharge: patient is progressing back to baseline Exam Vital Signs (past 8 hours): - 10/31/20 05:15 10/31/20 08:30 10/31/20 08:38 Temperature 97.1 F L 97.9 F Pulse Rate 87 62 Respiratory Rate 18 17 Blood Pressure 137/80 154/81 H 154/91 H Pulse Oximetry 97 99 Oxygen Delivery Method Room Air Oxygen Flow Rate 0 Narrative Exam Narrative: Pleasant 75-year-old male postop day 1 status post left total knee arthroplasty. Patient is resting comfortably in bed, is in no acute distress, is alert and oriented x3. Skin is warm dry, and the skin surrounding the incision site is free of erythema, warmth, induration, or discharge. Dressing over the incision site is free of strike through an is clean and dry. Good sensation appreciated throughout the bilateral lower extremities to light touch. Ankle dorsiflexion, plantar flexion, eversion, inversion performed bilaterally without difficulty or discomfort. Calves are soft and nontender, negative Homans sign. Capillary refill less than 2 seconds, palpable pulses appreciated. No other signs of DVT appreciated. Const General: cooperative, healthy appearing and comfortable Resp Effort & Inspection: normal respiratory effort and able to speak in complete sentences Skin General: no rashes or lesions noted and elasticity normal Objective Labs Result Diagrams: 10/31/20 06:20 Labs: Laboratory Results - last 24 hr 10/31/20 06:20 Hgb 12.5 L Hct 37.5 L PFSH Medical History Actinic keratosis Anxiety Cataracts, bilateral Depression HLD (hyperlipidemia) HTN (hypertension) Inguinal hernia Meniere's disease GUADALUPE (obstructive sleep apnea) Osteoarthritis Pneumonia SCC (squamous cell carcinoma) Thyroid tumor, benign (~1969) Surgical History History of surgery (~1997) Hx of blepharoplasty Hx of left inguinal hernia repair Social History household members: none Smoking Status: Former smoker alcohol intake: current Discharge Assessment & Plan Assessment and Plan Assessment: Patient is doing well. Plan of Treatment: Patient is to continue working with physical therapy in the outpatient setting following discharge from the hospital. Current pain management regimen is to be continued as it is adequately controlled the patient's pain level. Aspirin 81 mg twice daily is to be continued for 6 weeks for DVT prophylaxis. The 1st postoperative appointment is scheduled in the clinic for 2 weeks following discharge from the hospital. Dressing over the incision site is to remain intact. If the dressing is to become soiled or damage the patient is to contact clinic. The patient is to contact clinic with any concerns or questions. Any signs of increased redness, swelling, warmth, or discharge around the incision site is to be reported to the clinic. It is to remain weight-bearing as tolerated with the assistance of a front wheeled walker. Discharge Plan Discharge Plan Patient Disposition: Home Provider Discharge Comment: Patient cleared for discharge pending PT clearance. Discharge orders & Medications Discharge Orders: Discharge (Order); Ordered 10/31/20 Ordered By: Nikolai Antonio Prescriptions: New acetaminophen 325 mg Tablet 650 mg PO TID Qty: 90 RF: 0 aspirin 81 mg Tablet,Delayed Release (Dr/Ec) 81 mg PO BID Qty: 90 RF: 0 ibuprofen 400 mg Tablet 400 mg PO Q4HR Qty: 90 RF: 0 oxycodone 10 mg Tablet 10 mg PO Q3HR PRN (Reason: Pain, Severe (7-10)) Qty: 42 RF: 0 Continued cholecalciferol (vitamin D3) [Vitamin D3] 1,000 UNIT tablet 1,000 iu PO Q DAY Qty: 0 RF: 0 triamcinolone acetonide [Nasacort] 55 mcg Aerosol,Beasley 1 spray intranasal PRN PRN (Reason: Allergy Symptoms) RF: 0 metronidazole 0.75 % Cream 1 applic TOPICAL BID RF: 0 sildenafil (pulm.hypertension) 20 mg Tablet 2 - 5 tab PO PRN PRN (Reason: Erectile Dysfunction) RF: 0 atorvastatin 10 mg Tablet 10 mg PO BEDTIME RF: 0 acetaminophen 500 mg Tablet 500 mg PO DAILY PRN (Reason: Pain) RF: 0 losartan 25 mg Tablet 25 mg PO DAILY RF: 0 duloxetine 30 mg Capsule,Delayed Release(Dr/Ec) 60 mg PO QAM RF: 0 aspirin 81 mg Tablet 81 mg PO DAILY RF: 0 Follow up/Referrals: Emiliano Kay MD [Primary Care Provider] - Diet/Activity/Treatments Diet: Diet as Tolerated Activity: Weight-bearing as tolerated with the assistance of a front wheel walker. Skin/Wound/Dressing Care Report to your healthcare provider any signs of infection, such as:: chills, fever, night sweats, increased pain, unusual drainage and unusual redness Dressing: Dressing over the incision site is to remain intact. Contact clinic if the dressing is removed, soiled, saturated, or destroyed. Other wound treatment: Avoid placing topical ointments over the incision site. Visit Report/Discharge Packet Instructions: DI for Knee Replacement, Oxycodone Stand Alone Forms: Surgery Discharge Discharge Data Primary Care Provider: Emiliano Kay Attending Provider: Amanuel Magaña
--- NOTE | 2020-10-31 12:49 | PC.NURSE ---
Addendum entered by Eagle Red R.N. 10/31/20 13:16: Escorted out via wheelchair with all his belongings to home with his friend. Original Note: Patient cleared by physical therapy and ready for discharge. Discharge instructions and home handouts reviewed with patient and he states understanding and has no further questions or concerns. Patient states he has follow up with surgeon's office scheduled as well as outpatient PT. Patient reports he was able to fill all of his prescriptions ahead of time with help of PA, so requested this RN to shred prescriptions (duplicates, done). Aquacel dressing to left knee CDI. Patient instructed to notify MD with questions or concerns.
== END 2020-10-31 13:17 | disposition home or self-care (01) ==
LOC: OR 08:56 → AC 08:56
PROVIDERS: Family Provider Student in an Organized Health Care Education/Training Program; PCP Internal Medicine; Referring Provider Orthopaedic Surgery Adult Reconstructive Orthopaedic Surgery; Visit Provider Orthopaedic Surgery Adult Reconstructive Orthopaedic Surgery
PROC: 0SRD0JZ Replacement of Left Knee Joint with Synthetic Substitute, Open Approach (ICD-10-PCS; CPT 27447; principal; 2020-10-30 10:45)
DX: M17.12 Unilateral primary osteoarthritis, left knee (principal); I10 Essential (primary) hypertension; E78.5 Hyperlipidemia, unspecified; F41.9 Anxiety disorder, unspecified; F32.9 Major depressive disorder, single episode, unspecified; G47.33 Obstructive sleep apnea (adult) (pediatric); M25.762 Osteophyte, left knee
CPT/HCPCS: 27447; 36415; 73560; 85014; 85018; 97116; C1776; J0131; J0690; J1100; J1885; J2250; J2270; J2274; J2405; J2704; J3010

== ENCOUNTER → 2022-05-18 08:43 | Outpatient (CLI) | payer MEDICARE, BC, SELFPAY ==
[2020-10-30 14:50] VITALS: BMI 22.8
[2022-05-18 09:47] LABS: COVID19 -Nasal RAPID Negative (Negative)
== END ==
PROVIDERS: Family Provider Student in an Organized Health Care Education/Training Program; PCP Internal Medicine; Visit Provider Surgery
DX: Z01.812 Encounter for preprocedural laboratory examination (principal); Z20.822 Contact with and (suspected) exposure to COVID-19
CPT/HCPCS: 87635

== ENCOUNTER 2022-05-18 08:59 | Day surgery (SDC) | payer MEDICARE, BC, SELFPAY ==
[2020-10-30 14:50] VITALS: BMI 22.8
[2022-05-18 09:43] VITALS: BP 152/91; PULSE 80; RESP 16; TEMP 36.5; O2SAT 100
[2022-05-18] MEDS: LACTATED RINGERS 1,000 ML 42 ML IV (09:47)
--- NOTE | 2022-05-18 09:50 | PM.HP.1 ---
History of Present Illness History of Present Illness Date Patient Seen: 05/18/22 Time Patient Seen: 09:50 Chief complaint: DX COLONOSCOPY Narrative: Reports a change in bowel habit with a tendency towards more constipation and a recent positive FIT. He had a negative Cologuard 3 years ago and a failed colonoscopy secondary to prep 3 years ago. Patient History Medical History Actinic keratosis Anxiety BPH loc w urin obs/LUTS Cataracts, bilateral Depression Erectile dysfunction HLD (hyperlipidemia) HTN (hypertension) Inguinal hernia Meniere's disease GUADALUPE (obstructive sleep apnea) Osteoarthritis Pneumonia SCC (squamous cell carcinoma) Thyroid tumor, benign (~1969) Surgical History History of surgery (~1997) Hx of blepharoplasty Hx of left inguinal hernia repair Family & Social History Social History: household members none Tobacco & Substance use: Smoking Status Former smoker alcohol intake current alcohol intake frequency holiday/special occasion Substance Use Type does not use Meds Home Medications and Allergies Home Medications Medication Instructions Recorded Confirmed Type cholecalciferol (vitamin D3) 25 1,000 iu PO Q DAY ##0 11/03/10 05/18/22 History mcg (1,000 unit) tablet (Vitamin D3) metronidazole 0.75 % topical cream 1 applic topical BID Rosacea 01/30/19 05/18/22 History sildenafil (pulm.hypertension) 20 2 - 5 tab PO PRN PRN Erectile 01/30/19 05/18/22 History mg tablet Dysfunction atorvastatin 10 mg tablet 10 mg PO BEDTIME 10/22/20 05/18/22 History duloxetine 30 mg capsule,delayed 60 mg PO QAM 10/22/20 05/18/22 History release losartan 25 mg tablet 25 mg PO DAILY 10/22/20 05/18/22 History ibuprofen 400 mg tablet 400 mg PO Q4HR #90 tabs 10/31/20 05/18/22 Rx acetaminophen 325 mg tablet 650 mg PO TID PRN Pain (Scale 01/03/21 05/18/22 History Score 1-3) triamcinolone acetonide 55 mcg 1 spray intranasal DAILY 01/03/21 05/18/22 History nasal spray aerosol (Nasacort) Allergies Allergy/AdvReac Type Severity Reaction Status Date / Time ciprofloxacin Allergy Mild itching Verified 05/18/22 09:30 nickel Allergy Mild Rash Verified 05/18/22 09:30 tree and shrub pollen Allergy Mild Sneezing Verified 05/18/22 09:30 escitalopram AdvReac Mild lightheaded Verified 05/18/22 09:30 Review of Systems Review of Systems ROS: Yes All systems reviewed with the patient and are negative except as otherwise documented Exam Vital Signs (past 8 hours): - 05/18/22 09:43 Temperature 97.7 F Pulse Rate 80 Respiratory Rate 16 Blood Pressure 152/91 H Pulse Oximetry 100 Oxygen Delivery Method Room Air Oxygen Delivery Method Room Air Const General: cooperative HENMT Head: normal to inspection Eyes General: appearance normal, both eyes and all related structures Neck Neck: normal visual inspection Chest Chest: normal inspection of the chest Resp Effort & Inspection: normal respiratory effort Cardio Rate: regular rate GI Inspection: normal to inspection Skin General: no rashes or lesions noted Neuro General: patient alert and patient awake Extrem General: normal to inspection and no pedal edema Psych Appearance: grossly normal Assessment & Plan Assessment & Plan narrative: 76-year-old male with a positive FIT and a change in bowel habit. Colonoscopy is pursued today. Time Spent With Patient Critical Care time: I spent a total of [] minutes of critical care time on this patient's care today; this time is exclusive of procedural time.
--- NOTE | 2022-05-18 09:54 | PM.PREOP ---
Pre-operative Note COVID-19 COVID-19 status: Negative Result date/Date tested (Pos, Neg/Pending): 05/18/22 Criteria for continued procedure: Possibility delay results in more complex future surgery or treatment Interval Note History & Physical reviewed/Exam performed by Physician: Yes Changes to H&P: No ASA Class (for procedural sedation): III
--- NOTE | 2022-05-18 11:19 | SUR.OPER ---
SURECLIP X2 PLACED AT SPLENIC FLEXURE
--- NOTE | 2022-05-18 11:30 | P.OP.COLON_ITS ---
Operative Date/Time/Diagnoses Date of procedure: 05/18/22 Time of procedure: 11:30 Pre-op diagnosis: Change in bowel habit positive FIT Post-op diagnosis: same Procedure & Clinicians Study performed: Colonoscopy with Endoclip deployment Same procedure as scheduled: No Indications: Change in bowel habits positive FIT Surgeon: Imtiaz Avery Procedure Notes SCOAP/Timeout: Done Procedure in detail: After the risks and benefits were explained, written and verbal informed consent was obtained. The patient was brought into the procedure room and placed into the left lateral decubitus position. Please see nurse solder cream maker notes for sedation details. Digital rectal examination was accomplished. The scope was introduced into the patient and advanced under direct visualization to the cecum as identified by the appendiceal orifice and ileocecal valve. The scope was slowly withdrawn to carefully examine the mucosa for any defects or lesions. Comprehensive imaging was accomplished throughout the rectum including the dentate line. The colon was decompressed, the scope was then removed from the patient who tolerated the procedure well. Adult colonoscope Bowel prep fair; some areas could not be fully cleansed secondary to fibrous seed debris. Scope withdrawal time: 17 minutes Sedation minutes: 39 Specimen(s): none sent Impression: The patient had diverticulosis stretching from the sigmoid through to the ascending colon. Colon was tortuous and redundant. Navigation was quite diffic ult. This required use of abdominal pressure, patient position change into the right lateral decubitus position, and the stiffening shy. I did not appreciate any significant polyps mass lesions or inflammatory features throughout. Grade 1 to grade 2 internal hemorrhoids were noted. At around the splenic flexure on the way back we noticed a small breach in the mucosa with oozing of blood. I dial spect this was a consequence of scope trauma and we elected to place 2 Endoclips over this area to approximate the defect. Endoscopic diagnosis 1. Pandiverticulosis 2. Grade 1 to grade 2 hemorrhoids 3. Redundant and tortuous colon Post-procedure Plan for aftercare: 1. Fiber based bowel regimen is emphasized. 2. Follow-up in primary care. Disposition: PACU
[2022-05-18 11:31] VITALS: BP 141/83; PULSE 71; RESP 19; TEMP 36.6; O2SAT 97
[2022-05-18 11:35] VITALS: BP 120/80; PULSE 79; RESP 16; O2SAT 98
[2022-05-18 11:40] VITALS: BP 141/83; PULSE 72; RESP 19; O2SAT 97
[2022-05-18 11:45] VITALS: BP 146/85; PULSE 68; RESP 15; O2SAT 98
[2022-05-18 11:51] VITALS: BP 140/81; PULSE 66; RESP 22; TEMP 36.4; O2SAT 98
== END 2022-05-18 12:00 | disposition home or self-care (01) ==
PROVIDERS: Family Provider Student in an Organized Health Care Education/Training Program; PCP Internal Medicine; Referring Provider Internal Medicine Gastroenterology; Visit Provider Internal Medicine Gastroenterology
PROC: 0DJD8ZZ Inspection of Lower Intestinal Tract, Via Natural or Artificial Opening Endoscopic (ICD-10-PCS; CPT 45378; principal; 2022-05-18 10:30)
DX: R19.5 Other fecal abnormalities (principal); K57.30 Diverticulosis of large intestine without perforation or abscess without bleeding; K64.0 First degree hemorrhoids; K59.00 Constipation, unspecified; K31.9 Disease of stomach and duodenum, unspecified; Z20.822 Contact with and (suspected) exposure to COVID-19; Z01.812 Encounter for preprocedural laboratory examination
CPT/HCPCS: 45378; 87635; C9803; J2704

== ENCOUNTER → 2023-10-04 12:37 | Outpatient (CLI) | payer MEDICARE, BC, SELFPAY ==
[2020-10-30 14:50] VITALS: BMI 22.8
--- NOTE | 2023-10-04 | DI.RAD.S_ITS ---
PROCEDURE: XR KNEE RT 3V INDICATIONS: KNEE PAIN TECHNIQUE: 3 views of the knee were acquired. COMPARISON: [facility], CR, XR KNEE LT 1TO2V, 10/30/2020, 13:10. FINDINGS: Bones: There is moderate to severe tricompartmental osteoarthritis most notably in medial femoral tibial compartment with near complete loss of joint space, subchondral sclerosis and cystic changes and prominent marginal osteophyte formation. No significant patellar subluxation. No fractures or dislocations. No suspicious bony lesions. Soft tissues: No joint effusion. No suspicious soft tissue calcifications. IMPRESSION: No acute fracture or dislocation. Moderate to severe tricompartmental osteoarthritis most notably in medial femoral tibial compartment. No significant joint effusion. Dictated by: Awais David M.D. on 10/04/2023 at 14:16 Approved by: Awais David M.D. on 10/04/2023 at 14:17
== END ==
LOC: RAD 12:39
PROVIDERS: Family Provider Student in an Organized Health Care Education/Training Program; PCP Student in an Organized Health Care Education/Training Program; Referring Provider Student in an Organized Health Care Education/Training Program; Visit Provider Student in an Organized Health Care Education/Training Program
DX: M17.11 Unilateral primary osteoarthritis, right knee (principal); M25.561 Pain in right knee; G89.29 Other chronic pain
CPT/HCPCS: 73562

== ENCOUNTER 2024-03-28 07:36 | Observation (INO) | payer MEDICARE, BC, SELFPAY ==
[2020-10-30 14:50] VITALS: BMI 22.8
[2024-03-28] VITALS (25 sets, daily range): BP systolic 106–181; BP diastolic 65–95; PULSE 65–157; RESP 14–34; TEMP 36.3–36.7; O2SAT 96–99; BMI 22.8; BMI 22.4
--- NOTE | 2024-03-28 07:42 | EKG_ITS ---
[facility] [address] [place] [address] Test Date: 2024-03-28 Pat Name: Enrike Capellan Department: Room: Gender: Male Adult Care Provider: SHELDON : 1945 Requested By: Order Number: [id number] Reading MD: Curly Paiz MD Measurements Intervals [place] Rate: 141 P: SC: QRS: 49 QRSD: 86 T: 74 QT: 302 QTc: 462 Interpretive Statements Critical Test Result: High HR Atrial fibrillation with rapid ventricular response Nonspecific ST and T wave abnormality Electronically Signed On 03-28-2024 12:03:40 PDT by Curly Paiz MD
--- NOTE | 2024-03-28 07:42 | DI.RAD.S_ITS ---
PROCEDURE: XR CHEST 1V INDICATIONS: chest pain TECHNIQUE: One view of the chest was acquired. COMPARISON: None. FINDINGS: Surgical changes and devices: None. Lungs and pleura: Lungs are clear. No pleural effusions or pneumothorax. Mediastinum: Mediastinal contours appear normal. Heart size is normal. Bones and chest wall: No suspicious bony lesions. Overlying soft tissues appear unremarkable. IMPRESSION: No acute cardiopulmonary pathology. Dictated by: Awais David M.D. on 03/28/2024 at 8:11 Approved by: Awais David M.D. on 03/28/2024 at 8:12
--- NOTE | 2024-03-28 07:45 | ED_ITS ---
HPI - General Adult General Chief complaint: Arrhythmia/Palpitations Stated complaint: heart problem Time Seen by Provider: 03/28/24 07:44 History of Present Illness HPI narrative: 78-year-old male with a no known history of atrial fibrillation, no chronic anticoagulation, heard his Apple wrist alarm 530 this morning at rest with increased heart rate, he used his cardia monitor, indicated that he was in atrial fibrillation, heart rate 130-150, no chest pain, no shortness of breath, no dizziness, no syncope or presyncope symptoms. He did not have pain to his head, neck, chest, back, abdomen, legs, upper extremities. He has not recently had any diarrhea or nausea or vomiting. He has been exerting himself processing would logs into [employer] over the last 6 weeks, about 6 cords of wood over the last 6 weeks, 3 yesterday. During this time he had low blood pressure readings, and decreased his losartan dose from 50 mg to 25 mg. He has not had any other medication changes. No new medications. Related Data Home Medications Medication Instructions Recorded Confirmed cholecalciferol (vitamin D3) 25 1,000 iu PO Q DAY ##0 11/03/10 03/28/24 mcg (1,000 unit) tablet (Vitamin D3) metronidazole 0.75 % topical cream 1 applic topical BID Rosacea 01/30/19 03/28/24 sildenafil (pulm.hypertension) 20 2 - 5 tab PO PRN PRN Erectile 01/30/19 03/28/24 mg tablet Dysfunction atorvastatin 10 mg tablet 10 mg PO BEDTIME 10/22/20 03/28/24 duloxetine 30 mg capsule,delayed 60 mg PO QAM 10/22/20 03/28/24 release losartan 25 mg tablet 25 mg PO DAILY 10/22/20 03/28/24 triamcinolone acetonide 55 mcg 1 spray intranasal DAILY 01/03/21 03/28/24 nasal spray aerosol (Nasacort) magnesium glycinate 100 mg (as 400 mg PO BEDTIME 03/28/24 03/28/24 glycinate) tablet polyethylene glycol 3350 17 gram 17 g PO DAILY PRN Constipation 03/28/24 03/28/24 oral powder packet (Miralax) psyllium husk 3.4 gram/5.4 gram 1 tbsp PO BID 03/28/24 03/28/24 oral powder (Metamucil) Previous Rx's Medication Instructions Recorded apixaban 5 mg tablet 5 mg PO BID #60 tabs 03/28/24 metoprolol tartrate 25 mg tablet 25 mg PO BID #60 tabs 03/28/24 Allergies Allergy/AdvReac Type Severity Reaction Status Date / Time ciprofloxacin Allergy Mild itching Verified 03/28/24 07:53 nickel Allergy Mild Rash Verified 03/28/24 07:53 tree and shrub pollen Allergy Mild Sneezing Verified 03/28/24 07:53 escitalopram AdvReac Mild lightheaded Verified 03/28/24 07:53 Review of Systems Review of Systems Narrative: see HPI Patient History Medical History BPH loc w urin obs/LUTS Erectile dysfunction Osteoarthritis Meniere's disease Pneumonia Depression Actinic keratosis GUADALUPE (obstructive sleep apnea) Cataracts, bilateral SCC (squamous cell carcinoma) Thyroid tumor, benign (~1969) HTN (hypertension) HLD (hyperlipidemia) Inguinal hernia Anxiety Surgical History Hx of blepharoplasty Hx of left inguinal hernia repair History of surgery (~1997) Social History household members: none Previous occupational history: retired Smoking Status: Former smoker alcohol intake: current Type(s) of exercise: walking and bicycling frequency: daily Smoking Status: Former smoker alcohol intake frequency: holidays/special occasions only Substance Use Type: does not use Exam Narrative Exam Narrative: GENERAL: Well-developed patient, in mild distress. HEAD: Atraumatic. Normocephalic. EYES: Pupils equal round and reactive. Extraocular motions intact. No scleral icterus. No injection or drainage. ENT: Nose without bleeding, purulent drainage. Throat without erythema, tonsillar hypertrophy or exudate. Airway patent. NECK: Trachea midline. Non tender CARDIOVASCULAR: Fast heart rate, irregularly irregular heart rhythm, without murmurs, gallops, or rubs. RESPIRATORY: Clear to auscultation. Breath sounds equal bilaterally. No wheezes, rales, or rhonchi. GASTROINTESTINAL: Abdomen soft, non-tender, nondistended. EXTREMITIES: No edema or joint tenderness. BACK: Nontender without deformity or crepitance. No flank tenderness. NEURO: AOx3. Neuro exam grossly nonfocal SKIN: No rash or erythema of visible areas Initial Vital Signs Initial Vital Signs: Vital Signs Pulse Rate 157 H 03/28/24 07:40 Blood Pressure 181/95 H 03/28/24 07:40 Pulse Oximetry 99 03/28/24 07:40 Scores CHADS-VASc Congestive heart failure: no Hypertension: yes Age 75 years or older: yes Diabetes mellitus: no Stroke, TIA, or TE: no Vascular disease: no Sex category (female): Male Citation:: [id number] Score using MedCalc, total score = 2, stroke risk 2.2% per year Course Orders Ordered: Discontinued Medications Acetaminophen (Acetaminophen 325 Mg Tablet) 650 mg PO Q6H PRN PRN Reason: Fever/Mild Pain (1-3) Aspirin (Aspirin 81 Mg Chew Tab) 324 mg PO NOW ONE Stop: 03/28/24 07:43 Last Admin: 03/28/24 07:47 Dose: 243 mg Documented By: GET Diltiazem HCl (Diltiazem 25 Mg/5 Ml Sdv) 20 mg IV NOW ONE Stop: 03/28/24 07:50 Last Admin: 03/28/24 07:56 Dose: 20 mg Documented By: Diltiazem HCl 125 mg/ Sodium (Chloride) 125 mls @ 5 mls/hr IV TITRATE [facility]; Protocol Last Titration: 03/28/24 12:57 Dose: 0 mg/hr, 0 mls/hr Documented By: Admin: 03/28/24 08:05 Dose: 5 mg/hr, 5 mls/hr Documented By: Metoprolol Tartrate (Metoprolol Ir 25 Mg Tablet) 25 mg PO BID [facility] Last Admin: 03/28/24 11:12 Dose: 25 mg Documented By: MAT Naloxone HCl (Naloxone 0.4 Mg/Ml Vial) 0.2 mg IV Q2MIN PRN PRN Reason: Opiate Reversal Ondansetron HCl (Ondansetron 4 Mg/2 Ml Inj) 4 mg IV Q8HR PRN PRN Reason: Nausea And Vomiting Vital Signs Vital signs: Vital Signs - 8 hr 03/28/24 07:40 03/28/24 07:40 03/28/24 07:49 Temperature 97.4 F L Pulse Rate 157 H 150 H Respiratory Rate 20 Blood Pressure 181/95 H 181/95 H Pulse Oximetry 99 98 Oxygen Delivery Method Room Air 03/28/24 07:56 03/28/24 08:00 03/28/24 08:01 Temperature Pulse Rate 135 H 110 H 114 H Respiratory Rate 19 18 Blood Pressure 181/95 H Pulse Oximetry 98 97 Oxygen Delivery Method 03/28/24 08:01 03/28/24 08:05 03/28/24 08:30 Temperature Pulse Rate 111 H 85 Respiratory Rate 28 H Blood Pressure 107/65 107/65 Pulse Oximetry 97 Oxygen Delivery Method 03/28/24 08:31 03/28/24 08:31 03/28/24 09:00 Temperature Pulse Rate 83 Respiratory Rate 26 H Blood Pressure 118/75 114/77 Pulse Oximetry 96 Oxygen Delivery Method 03/28/24 09:00 Temperature Pulse Rate 79 Respiratory Rate 15 Blood Pressure Pulse Oximetry 96 Oxygen Delivery Method Medical Decision Making Lab Data Lab results reviewed: Yes I reviewed the patient's lab results. Lab results narrative: CBC unremarkable, CMP unremarkable, including electrolytes potassium and magnesium. 03/28/24 07:48 03/28/24 07:48 Labs: Lab Results 03/28/24 Range/Units 07:48 WBC 7.9 (4.5-11.0) X10^3/uL RBC 5.12 (4.5-5.9) X10^6/uL Hgb 15.2 (13.5-17.5) g/dL Hct 45.9 (41-53) % MCV 89.6 (80-100) fL MCH 29.6 (26-34) PG MCHC 33.1 (30-36) % RDW 12.9 (11.6-14.8) % Plt Count 247 (150-400) X10^3/uL Neut % (Auto) 60.3 (50-75) % Lymph % (Auto) 24.5 L (25-40) % [place] % (Auto) 8.9 (3-14) % Eos % (Auto) 5.6 H (2-4) % Baso % (Auto) 0.7 (0-2) % Neut # (Auto) 4800 (7159-8091) /uL Lymph # (Auto) 1900 (6257-9757) /uL [place] # (Auto) 700 (0-900) /uL Eos # (Auto) 400 (0-450) /uL Baso # (Auto) 100 (0-100) /uL PT 11.6 (9.4-12.5) SECONDS INR 1.0 (0.9-1.3) APTT 32 (25.1-36.5) SECONDS Sodium 137 (137-145) mmol/L Potassium 3.9 (3.4-5.1) mmol/L Chloride 102 (98-107) mmol/L Carbon Dioxide 29 (22-32) mmol/L BUN 22 H (9-20) mg/dL Creatinine 0.85 (0.66-1.25) mg/dL Estimated GFR > 60 (>60) mL/min BUN/Creatinine Ratio 25.9 H (6-22) Glucose 130 H (80-110) mg/dL Calcium 9.3 (8.4-10.2) mg/dL Magnesium 1.9 (1.6-2.3) mg/dL Total Bilirubin 0.6 (0.2-1.3) mg/dL AST 33 (17-59) IU/L ALT 30 (<50) IU/L Alkaline Phosphatase 74 (38-126) U/L Total Creatine Kinase 147 (55-170) U/L Troponin I < 0.012 (0.01-0.034) ng/mL NT-Pro-B Natriuret Pep 474 H (<450) pg/mL Total Protein 7.2 (6.3-8.2) g/dL Albumin 4.6 (3.5-5.0) g/dL Globulin 2.6 (1.7-4.1) g/dL Albumin/Globulin Ratio 1.8 (1.0-2.8) Lipase 81 (23-300) U/L Imaging Data Chest x-ray: Radiologist's Impression: Close Chest X-Ray (Signed) Awais David - 03/28/[address] [address] XRay Report Signed Patient: Enrike Capellan MR#: [id number] : 1945 Acct:[id number] Age/Sex: 78 / M Date of Service: 03/28/24 Loc: ED Accession Number: [id number] Procedure: XR chest 1V Ordering Provider: Nicholas Olivas MD PROCEDURE: XR CHEST 1V INDICATIONS: chest pain TECHNIQUE: One view of the chest was acquired. COMPARISON: None. FINDINGS: Surgical changes and devices: None. Lungs and pleura: Lungs are clear. No pleural effusions or pneumothorax. Mediastinum: Mediastinal contours appear normal. Heart size is normal. Bones and chest wall: No suspicious bony lesions. Overlying soft tissues appear unremarkable. IMPRESSION: No acute cardiopulmonary pathology. Dictated by: Awais David M.D. on 03/28/2024 at 8:11 Approved by: Awais David M.D. on 03/28/2024 at 8:12 ECG Data Attestation: I personally reviewed and interpreted this ECG as follows: Interpretation: 0745, Atrial fibrillation with rapid ventricular rate 141 noted, slight ST segment upsloping depression leads V3-V4. No ST segment elevation. QRS 86, QTC 462. 0832, Atrial fibrillation with ventricular response rate 72 decreased, no obvious ST segment elevation or depression changes. MDM Narrative Medical decision making narrative: 78-year-old male with no known history of atrial fibrillation, alerted to increased heart rate by his apple watch this morning, asymptomatic, cardia monitor indicated atrial fibrillation, here for further evaluation, triage noted to have atrial fibrillation with rapid ventricular response rate, initial blood pressure 180/95, screening EKG confirmed atrial fibrillation with ventricular rate 141 noted, no obvious ST segment elevation changes. Stable, not on anticoagulation, cardioversion not indicated at this time, as discussed with patient. Given aspirin orally. Trial of rate control, IV diltiazem bolus with drip. Labs pending. Chest x-ray pending. Chads-Vasc score =2, for 2.2% annual risk stroke IV Diltiazem bolus, ventricular rate atrial fibrillation reduced to 90-120 bpm range, infusion diltiazem being titrated. Systolic blood pressure lower 107. Chest x-ray and troponin pending. Consider admission. 914, case discussed with hospitalist Dr. Davies, accepts patient to observation telemetry Discharge Plan Departure Patient Disposition: Admitted as Observation Clinical Impression: Atrial fibrillation with rapid ventricular response Admit Date/Time: 03/28/24 09:16 Admit Provider: Jett Davies
[2024-03-28] MEDS: ASPIRIN 81 MG CHEW TAB 324 MG PO (07:47)
[2024-03-28] MEDS: dilTIAZem 25 MG/5 ML SDV 20 MG IV (07:56)
[2024-03-28 08:02] LABS: Add Manual Diff / Slide Review NO; Basophils Absolute Auto 100 /uL (0-100); Basophils Percent Auto 0.7 % (0-2); Eosinophils Absolute Auto 400 /uL (0-450); Eosinophils Percent Auto 5.6 % (2-4); Hematocrit 45.9 % (41-53); Hemoglobin 15.2 g/dL (13.5-17.5); Lymphocytes Absolute Auto 1900 /uL (1100-4500); Lymphocytes Percent Auto 24.5 % (25-40); Mean Corpuscular HGB Conc 33.1 % (30-36); Mean Corpuscular Hemoglobin 29.6 PG (26-34); Mean Corpuscular Volume 89.6 fL (80-100); Monocytes Absolute Auto 700 /uL (0-900); Monocytes Percent Auto 8.9 % (3-14); Neutrophils Absolute Auto 4800 /uL (1500-7000); Neutrophils Percent Auto 60.3 % (50-75); Platelet Count 247 X10^3/uL (150-400); Prothrombin Time 11.6 SECONDS (9.4-12.5); Red Blood Cell Count 5.12 X10^6/uL (4.5-5.9); Red Cell Distribution Width 12.9 % (11.6-14.8); White Blood Cell Count 7.9 X10^3/uL (4.5-11.0)
[2024-03-28 08:04] LABS: PTT Partial Thromboplastin Tim 32 SECONDS (25.1-36.5)
[2024-03-28] MEDS: dilTIAZem 125 MG in SODIUM CHLORIDE 0.9% 100 ML IV (08:05)
[2024-03-28 08:11] LABS: Alanine Aminotransferase 30 IU/L (<50); Albumin 4.6 g/dL (3.5-5.0); Albumin Globulin Ratio 1.8 (1.0-2.8); Alkaline Phosphatase 74 U/L (38-126); Aspartate Aminotransferase 33 IU/L (17-59); BUN Creatinine Ratio 25.9 (6-22); Bilirubin Total 0.6 mg/dL (0.2-1.3); Blood Urea Nitrogen 22 mg/dL (9-20); Calcium 9.3 mg/dL (8.4-10.2); Carbon Dioxide 29 mmol/L (22-32); Chloride 102 mmol/L (98-107); Creatine Kinase 147 U/L (55-170); Estimated Glomerular Filt Rate > 60 mL/min (>60); Globulin 2.6 g/dL (1.7-4.1); Glucose 130 mg/dL (80-110); HEMOLYSIS < 15 (0-50); Lipase 81 U/L (23-300); Magnesium 1.9 mg/dL (1.6-2.3); Potassium 3.9 mmol/L (3.4-5.1); Sodium 137 mmol/L (137-145); Total Protein 7.2 g/dL (6.3-8.2)
[2024-03-28 08:22] LABS: NT-proBNP (BNP-Adult 18+) 474 pg/mL (<450); Troponin I < 0.012 ng/mL (0.01-0.034)
--- NOTE | 2024-03-28 08:25 | EKG_ITS ---
[facility] [address], [place] [address] Test Date: 2024-03-28 Pat Name: Enrike Capellan Department: [facility] Room: Gender: Male Jde Developer: VINCENT : 1945 Requested By: Order Number: [id number] Reading MD: Curly Paiz MD Measurements Intervals [place] Rate: 72 P: MT: QRS: 43 QRSD: 86 T: 68 QT: 352 QTc: 385 Interpretive Statements Atrial fibrillation Electronically Signed On 03-28-2024 12:03:54 PDT by Curly Paiz MD
--- NOTE | 2024-03-28 10:23 | P.HP_ITS ---
History of Present Illness History of Present Illness Chief complaint: heart problem Narrative: Patient is a 78-year-old male with a history of hypertension. He has recently decreased his losartan from 50-25 mg over the last several weeks due to a relative decrease in blood pressure. He has been chopping a lot of wood per the for the past several weeks and notes that he was then somewhat more fatigued than normal over the last several days. Denies any chest pain, dyspnea either at rest or with exertion. He also denies any palpitations. He awoke this morning and his Apple watch alerted him to AFib. He usually does not sleep with a watch on but did so last night. He double check this with a cardia patch which confirmed AFib. He came to the ER where he was found to be in atrial fibrillation with RVR and started on a diltiazem bolus and drip. This improved his rate. He denies any knowledge of atrial fibrillation. No recent cough, rhinorrhea, fevers, or chills. No recent diarrhea. He was have chronic constipation. [facility] Medical History BPH loc w urin obs/LUTS Erectile dysfunction Osteoarthritis Meniere's disease Pneumonia Depression Actinic keratosis GUADALUPE (obstructive sleep apnea) Cataracts, bilateral SCC (squamous cell carcinoma) Thyroid tumor, benign (~1969) HTN (hypertension) HLD (hyperlipidemia) Inguinal hernia Anxiety Surgical History Hx of blepharoplasty Hx of left inguinal hernia repair History of surgery (~1997) Social History household members: none Previous occupational history: retired Smoking Status: Former smoker alcohol intake: current Type(s) of exercise: walking and bicycling frequency: daily Meds Home Medications and Allergies Home Medications Medication Instructions Recorded Confirmed Type cholecalciferol (vitamin D3) 25 1,000 iu PO Q DAY ##0 11/03/10 05/18/22 History mcg (1,000 unit) tablet (Vitamin D3) metronidazole 0.75 % topical cream 1 applic topical BID Rosacea 01/30/19 05/18/22 History sildenafil (pulm.hypertension) 20 2 - 5 tab PO PRN PRN Erectile 01/30/19 05/18/22 History mg tablet Dysfunction atorvastatin 10 mg tablet 10 mg PO BEDTIME 10/22/20 05/18/22 History duloxetine 30 mg capsule,delayed 60 mg PO QAM 10/22/20 05/18/22 History release losartan 25 mg tablet 25 mg PO DAILY 10/22/20 05/18/22 History ibuprofen 400 mg tablet 400 mg PO Q4HR #90 tabs 10/31/20 05/18/22 Rx acetaminophen 325 mg tablet 650 mg PO TID PRN Pain (Scale 01/03/21 05/18/22 History Score 1-3) triamcinolone acetonide 55 mcg 1 spray intranasal DAILY 01/03/21 05/18/22 History nasal spray aerosol (Nasacort) Allergies Allergy/AdvReac Type Severity Reaction Status Date / Time ciprofloxacin Allergy Mild itching Verified 03/28/24 07:53 nickel Allergy Mild Rash Verified 03/28/24 07:53 tree and shrub pollen Allergy Mild Sneezing Verified 03/28/24 07:53 escitalopram AdvReac Mild lightheaded Verified 03/28/24 07:53 Review of Systems Review of Systems Narrative: All else reviewed and otherwise unremarkable except as noted in the history and physical. Exam Vital Signs (past 8 hours): - 03/28/24 07:40 03/28/24 07:40 03/28/24 07:49 Temperature 97.4 F L Pulse Rate 157 H 150 H Respiratory Rate 20 Blood Pressure 181/95 H 181/95 H Pulse Oximetry 99 98 Oxygen Delivery Method Room Air 03/28/24 07:56 03/28/24 08:00 03/28/24 08:01 Temperature Pulse Rate 135 H 110 H 114 H Respiratory Rate 19 18 Blood Pressure 181/95 H Pulse Oximetry 98 97 Oxygen Delivery Method 03/28/24 08:01 03/28/24 08:05 03/28/24 08:30 Temperature Pulse Rate 111 H 85 Respiratory Rate 28 H Blood Pressure 107/65 107/65 Pulse Oximetry 97 Oxygen Delivery Method 03/28/24 08:31 03/28/24 08:31 03/28/24 09:00 Temperature Pulse Rate 83 Respiratory Rate 26 H Blood Pressure 118/75 114/77 Pulse Oximetry 96 Oxygen Delivery Method 03/28/24 09:00 03/28/24 09:30 03/28/24 09:30 Temperature Pulse Rate 79 89 Respiratory Rate 15 22 Blood Pressure 107/74 Pulse Oximetry 96 97 Oxygen Delivery Method 03/28/24 10:00 03/28/24 10:00 Temperature Pulse Rate 90 Respiratory Rate 20 Blood Pressure 128/83 Pulse Oximetry 99 Oxygen Delivery Method Oxygen Delivery Method Room Air Narrative Exam Narrative: NAD, alert and oriented, fluent speech, calm. Normocephalic skull, EOMI, anicteric sclera, symmetric pupils. Oropharynx unremarkable, no droop. Neck supple, midline trachea, no adenopathy. Lungs clear, normal rate and effort. Heart irregular, no murmur gallop or rub. Abdomen is soft, non distended and non tender. Extremities are free of edema. Skin is free of rash or lesions. Joints are not swollen or deformed. Judgment appears to be normal. Objective ECG Impression: Atrial fibrillation Imaging Chest x-ray: Radiologist's impression: No acute cardiopulmonary pathology. Labs 03/28/24 07:48 03/28/24 07:48 Labs: Laboratory Results - last 24 hr 03/28/24 07:48 WBC 7.9 RBC 5.12 Hgb 15.2 Hct 45.9 MCV 89.6 MCH 29.6 MCHC 33.1 RDW 12.9 Plt Count 247 Neut % (Auto) 60.3 Lymph % (Auto) 24.5 L [place] % (Auto) 8.9 Eos % (Auto) 5.6 H Baso % (Auto) 0.7 Neut # (Auto) 4800 Lymph # (Auto) 1900 [place] # (Auto) 700 Eos # (Auto) 400 Baso # (Auto) 100 PT 11.6 INR 1.0 APTT 32 Sodium 137 Potassium 3.9 Chloride 102 Carbon Dioxide 29 BUN 22 H Creatinine 0.85 Estimated GFR > 60 BUN/Creatinine Ratio 25.9 H Glucose 130 H Calcium 9.3 Magnesium 1.9 Total Bilirubin 0.6 AST 33 ALT 30 Alkaline Phosphatase 74 Total Creatine Kinase 147 Troponin I < 0.012 NT-Pro-B Natriuret Pep 474 H Total Protein 7.2 Albumin 4.6 Globulin 2.6 Albumin/Globulin Ratio 1.8 Lipase 81 Assessment & Plan Assessment & Plan narrative: 1. Presumed new atrial fibrillation but response, present on admission and improving. 2. Hypertension, present on admission and stable. 3. Chronic constipation, present on admission and stable. Plan: -start metoprolol 12.5 b.i.d. and wean diltiazem drip. -2D echo to rule out structural heart disease. No murmur on exam. -possible discharge later today on oral agents and apixaban if his rate control continues to hold after the drip is stopped. His Elder-Vasc score is 3. GERARDO: 03/28 Full code No proxy decision maker Lives alone locally, has a dog. Time-Based Coding :: 35 min spent with patient and on the chart (including review of chart, obtaining history, exam, reviewing outside data, placing orders, documenting exam and treatment plan, and counseling patient) on 03/28. Quality MIPS - Admit I confirm the patient?s Advance Care Plan is present, Code status is documented, Surrogate decision maker is in patient?s record [If Yes, STOP here]: Yes MIPS - Meds 'Current medications' to include all prescriptions, [id number] products, herbals, cannabis/cannabidiol products, and vitamin/mineral/dietary (nutritional) supplements. I have utilized all available resources to obtain, update, or review the patient?s current medications. [If Yes, STOP here]: Yes
[2024-03-28] MEDS: METOPROLOL IR 25 MG TABLET PO (11:12)
--- NOTE | 2024-03-28 16:10 | P.DS_ITS ---
History of Present Illness History of Present Illness Chief complaint: heart problem Narrative: Patient is a 78-year-old male with a history of hypertension. He has recently decreased his losartan from 50-25 mg over the last several weeks due to a relative decrease in blood pressure. He has been chopping a lot of wood per the for the past several weeks and notes that he was then somewhat more fatigued than normal over the last several days. Denies any chest pain, dyspnea either at rest or with exertion. He also denies any palpitations. He awoke this morning and his Apple watch alerted him to AFib. He usually does not sleep with a watch on but did so last night. He double check this with a cardia patch which confirmed AFib. He came to the ER where he was found to be in atrial fibrillation with RVR and started on a diltiazem bolus and drip. This improved his rate. He denies any knowledge of atrial fibrillation. No recent cough, rhinorrhea, fevers, or chills. No recent diarrhea. He was have chronic constipation. Discharge Providers Provider Date of admission: 03/28/24 09:16 Discharge Date: 03/28/24 Primary care physician: Radha Esteban PA-C Consults: None. Discharge provider: Jett Davies MD Summary Hospital Course Discharge Diagnosis: 1. New atrial fibrillation with RVR, present on admission and improved. 2. Hypertension, present on admission and stable. 3. Elder-Vasc score of 3, indication for anticoagulation. Hospital Course: The patient was admitted for atrial fibrillation RVR. He was given a bolus and drip of diltiazem. Oral metoprolol was loaded and the patient was able to wean off the drip. His Elder Vasc score calculated at 3, recommendations were made for anticoagulation. He had no contraindications and we will be started on Eliquis 5 p.o. b.i.d.. He was able to move around without difficulty and remained rate controlled. He was felt to be stable for discharge with close follow up. The patient will benefit from an outpatient cardiology referral and echocardiogram. He was no history of structural cardiac abnormalities. Status at Discharge Cognitive/behavioral status at discharge: oriented Functional status at discharge: independent ambulation Overall status at discharge: patient is back to baseline Time Spent with Patient Time spent: Greater than 30 minutes Exam Vital Signs (past 8 hours): - 03/28/24 08:30 03/28/24 08:31 03/28/24 08:31 Temperature Pulse Rate 85 83 Respiratory Rate 28 H 26 H Blood Pressure 118/75 Pulse Oximetry 97 96 Oxygen Delivery Method Oxygen Flow Rate 03/28/24 09:00 03/28/24 09:00 03/28/24 09:30 Temperature Pulse Rate 79 Respiratory Rate 15 Blood Pressure 114/77 107/74 Pulse Oximetry 96 Oxygen Delivery Method Oxygen Flow Rate 03/28/24 09:30 03/28/24 10:00 03/28/24 10:00 Temperature Pulse Rate 89 90 Respiratory Rate 22 20 Blood Pressure 128/83 Pulse Oximetry 97 99 Oxygen Delivery Method Oxygen Flow Rate 03/28/24 10:21 03/28/24 11:00 03/28/24 11:00 Temperature 98.0 F Pulse Rate 104 H Respiratory Rate 31 H Blood Pressure 128/90 128/90 Pulse Oximetry 98 Oxygen Delivery Method Room Air Oxygen Flow Rate 0 03/28/24 11:00 03/28/24 11:30 03/28/24 11:30 Temperature Pulse Rate 94 H 98 H Respiratory Rate 27 H 16 Blood Pressure 123/77 Pulse Oximetry Oxygen Delivery Method Oxygen Flow Rate 03/28/24 12:00 03/28/24 12:00 03/28/24 12:30 Temperature Pulse Rate 91 H 70 Respiratory Rate 26 H 14 Blood Pressure 106/80 Pulse Oximetry Oxygen Delivery Method Oxygen Flow Rate 03/28/24 12:30 03/28/24 13:00 03/28/24 13:04 Temperature Pulse Rate 77 80 Respiratory Rate 34 H 29 H Blood Pressure 122/87 Pulse Oximetry Oxygen Delivery Method Oxygen Flow Rate 03/28/24 13:04 03/28/24 13:30 03/28/24 13:30 Temperature Pulse Rate 65 Respiratory Rate 16 Blood Pressure 154/74 H 106/69 Pulse Oximetry Oxygen Delivery Method Oxygen Flow Rate 03/28/24 14:00 03/28/24 14:01 03/28/24 14:01 Temperature Pulse Rate 81 70 Respiratory Rate 27 H 24 Blood Pressure 132/76 Pulse Oximetry Oxygen Delivery Method Oxygen Flow Rate 03/28/24 14:30 03/28/24 14:55 03/28/24 15:00 Temperature Pulse Rate 74 68 Respiratory Rate 25 H 15 Blood Pressure Pulse Oximetry Oxygen Delivery Method Room Air Oxygen Flow Rate 03/28/24 15:00 Temperature Pulse Rate Respiratory Rate Blood Pressure 125/77 Pulse Oximetry Oxygen Delivery Method Oxygen Flow Rate Oxygen Delivery Method Room Air Oxygen Flow Rate 0 Narrative Exam Narrative: NAD, alert and oriented. Fluent speech. Lungs are clear, normal rate and effort. Heart is irregular, no murmur gallop or rub. Abdomen is soft, non distended. Extremities are free of edema. Objective ECG Impression: Atrial fibrillation, RVR. Imaging Chest x-ray: Radiologist's impression: Chest x-ray is clear. Labs 03/28/24 07:48 03/28/24 07:48 Labs: Laboratory Results - last 24 hr 03/28/24 07:48 WBC 7.9 RBC 5.12 Hgb 15.2 Hct 45.9 MCV 89.6 MCH 29.6 MCHC 33.1 RDW 12.9 Plt Count 247 Neut % (Auto) 60.3 Lymph % (Auto) 24.5 L [place] % (Auto) 8.9 Eos % (Auto) 5.6 H Baso % (Auto) 0.7 Neut # (Auto) 4800 Lymph # (Auto) 1900 [place] # (Auto) 700 Eos # (Auto) 400 Baso # (Auto) 100 PT 11.6 INR 1.0 APTT 32 Sodium 137 Potassium 3.9 Chloride 102 Carbon Dioxide 29 BUN 22 H Creatinine 0.85 Estimated GFR > 60 BUN/Creatinine Ratio 25.9 H Glucose 130 H Calcium 9.3 Magnesium 1.9 Total Bilirubin 0.6 AST 33 ALT 30 Alkaline Phosphatase 74 Total Creatine Kinase 147 Troponin I < 0.012 NT-Pro-B Natriuret Pep 474 H Total Protein 7.2 Albumin 4.6 Globulin 2.6 Albumin/Globulin Ratio 1.8 Lipase 81 PFSH Medical History BPH loc w urin obs/LUTS Erectile dysfunction Osteoarthritis Meniere's disease Pneumonia Depression Actinic keratosis [place] (obstructive sleep apnea) Cataracts, bilateral SCC (squamous cell carcinoma) Thyroid tumor, benign (~1969) HTN (hypertension) HLD (hyperlipidemia) Inguinal hernia Anxiety Surgical History Hx of blepharoplasty Hx of left inguinal hernia repair History of surgery (~1997) Social History household members: none Previous occupational history: retired Smoking Status: Former smoker alcohol intake: current Type(s) of exercise: walking and bicycling frequency: daily Discharge Assessment & Plan Assessment and Plan Assessment: 1. New atrial fibrillation with RVR, present on admission and improved. 2. Hypertension, present on admission and stable. 3. Elder-Vasc score of 3, indication for anticoagulation. Plan of Treatment: Patient will continue metoprolol 25 b.i.d. dosing and Eliquis 5 b.i.d. with close follow up. He will benefit from a Cardiology outpatient referral and an outpatient cardiac echo to rule out structural heart disease. Discharge Plan Discharge Plan Patient Disposition: Home Provider Discharge Comment: Rate controlled on metoprolol, stable for discharge home. Discharge orders & Medications Prescriptions: New metoprolol tartrate 25 mg Tablet 25 mg PO BID Qty: 60 0RF apixaban 5 mg tablet 5 mg PO BID Qty: 60 4RF Continued cholecalciferol (vitamin D3) [Vitamin D3] 1,000 UNIT tablet 1,000 iu PO Q DAY Qty: 0 polyethylene glycol 3350 [Miralax] 17 gram Powder In Packet 17 g PO DAILY PRN (Reason: Constipation) magnesium glycinate 100 mg Tablet 400 mg PO BEDTIME Metamucil 3.4 gram/5.4 gram Powder 1 tbsp PO BID Rx Instructions: mix into at least 8 oz of water or juice before administering metronidazole 0.75 % Cream 1 applic TOPICAL BID sildenafil (pulm.hypertension) 20 mg Tablet 2 - 5 tab PO PRN PRN (Reason: Erectile Dysfunction) atorvastatin 10 mg Tablet 10 mg PO BEDTIME losartan 25 mg Tablet 25 mg PO DAILY duloxetine 30 mg Capsule,Delayed Release(Dr/Ec) 60 mg PO QAM triamcinolone acetonide [Nasacort] 55 mcg aerosol,spray 1 spray intranasal DAILY Rx Instructions: administer into each nostril Discontinued ibuprofen 400 mg tablet 400 mg PO Q4HR PRN (Reason: Pain (Scale Score 4-6)) Follow up/Referrals: Radha Esteban PA-C [Primary Care Provider] - (please call & schedule a follow up appointment with your wholesale representative) Discharge Health Status Multidrug resistant organism: No MDRO Diet/Activity/Treatments Diet: Diet as Tolerated Activity: As tolerated Visit Report/Discharge Packet Instructions: DI for Atrial Fibrillation, Metoprolol, Apixaban Stand Alone Forms: Patient Portal/API Discharge Data Primary Care Provider: Radha Esteban Attending Provider: Jett Davies Admit Date/Time: 03/28/24 09:16 Quality VTE Deep Vein Thrombosis/Pulmonary Embolism Present on Admission: No
--- NOTE | 2024-03-28 17:15 | PC.NURSE ---
Admit/Discharge Note Patient admitted to room 230 from ER at 1100. Arrived on diltiazem gtt 5 mg/hr, metoprolol PO administered and gtt turned off at 1257. Afib CVR in the 60-70s. No dizziness, no chest pain, steady on feet walking in room SBA. Pt discharged to home at 1710. Escorted to hospital exit via wheelchair by staff member. Written and verbal d/c instructions given on atrial fib, metoprolol, and eliquis. All questions answered. All belongings with pt including glasses, cell phone, keys, wallet, and clothing.
== END 2024-03-28 17:10 | disposition home or self-care (01) ==
LOC: ED 09:16 → AC 09:17 → ICU 10:29
PROVIDERS: Admitting Provider Hospitalist; Emergency Provider Emergency Medicine; Family Provider Student in an Organized Health Care Education/Training Program; PCP Student in an Organized Health Care Education/Training Program; Visit Provider Hospitalist
DX: R00.2 Palpitations (principal); I10 Essential (primary) hypertension; I48.91 Unspecified atrial fibrillation
CPT/HCPCS: 36415; 71045; 80053; 82550; 83690; 83735; 83880; 84484; 85025; 85610; 85730; 93005; 96365; 96366; 96375; 99284; G0378

== ENCOUNTER → 2024-05-07 09:28 | Outpatient (CLI) | payer MEDICARE, BC, SELFPAY ==
[2024-03-28 13:50] VITALS: BMI 22.4
--- NOTE | 2024-05-07 09:29 | DI.ECHO.S_ITS ---
[facility] : : [address] : : [place] : : [id number] : : Phone: [phone] Echocardiogram Report + + :Name: PATRICIA HERNANDEZ Study Date: 05/07/2024 Height: 72 in : :[facility] ReadingLocation: Weight: 168 lb : : Gender: Male BSA: 2.0 m2 : :: 1945 Age: 78 yrs BP: 154/101 mmHg: :Reason For Study: ATRIAL FIBRILLATION : :Ordering Physician: DRU, : :EDWIGE [place] Performed By: Germán Yusuf : :Referring: UNSPECIFIED : + + Interpretation Summary The left ventricle is normal in size. Left ventricular ejection fraction is estimated to be 45 +/- 5%. There is possible hypokinesis along the inferolateral segments. The right ventricle is normal in size and function. The right ventricular systolic pressure is estimated to be at least 39 mmHg based on an estimated right atrial pressure of 8 mm Hg. The left atrium is severely dilated. The right atrium is moderately dilated. There is mild mitral regurgitation. There is mild aortic regurgitation. There is mild to moderate tricuspid regurgitation. The ascending aorta is mild-moderately enlarged. Procedure: A two-dimensional transthoracic echocardiogram with color flow and Doppler was performed. The study quality was technically good. There is no prior echocardiogram noted for this patient. The patient was in atrial fibrillation with heart rates between 74-101 bpm during the exam. Left Ventricle: The left ventricle is normal in size. There is normal left ventricular wall thickness. There is no ventricular septal defect visualized. Left ventricular ejection fraction is estimated to be 45 +/- 5%. There is possible hypokinesis along the inferolateral segments. Diastolic function could not be accurately assessed due to atrial fibrillation. Right Ventricle: The right ventricle is normal in size and function. Atria: The left atrium is severely dilated. The right atrium is moderately dilated. There is no Doppler evidence for an interatrial shunt. Mitral Valve: There is mild mitral annular calcification. There is mild mitral regurgitation. Aortic Valve: The aortic valve is trileaflet. The aortic valve opens well. The aortic valve is mildly calcified. There is mild aortic regurgitation. Tricuspid Valve: The tricuspid valve is normal in structure and function. There is mild to moderate tricuspid regurgitation. The right ventricular systolic pressure is estimated to be at least 39 mmHg based on an estimated right atrial pressure of 8 mm Hg. Pulmonic Valve: The pulmonic valve is normal in structure and function. There is trace pulmonic regurgitation. Great Vessels: The aortic root is mildly dilated. The ascending aorta is mild-moderately enlarged. The pulmonary artery is normal size. The IVC is dilated (diameter is greater than 2.1 cm) yet it collapses greater than 50% with a sniff. This suggests a right atrial pressure of 8 mm Hg. Pericardium/ Pleura There is no pericardial effusion. There is no pleural effusion. MMode/2D Measurements & Calculations LVIDd: 5.2 cm LVOT diam: 2.3 cm LVIDs: 3.9 cm Ao root diam: 4.0 cm FS: 24.9 % asc Aorta Diam: 4.2 cm EPSS: 0.73 cm Ao Arch Diam (Prox Trans): 2.1 cm IVSd: 0.94 cm LVPWd: 0.81 cm LV miranda. diameter/BSA (cm/m^2): 2.6 LV sys. diameter/BSA (cm/m^2): 2.0 LA A2 area: 28.4 cm2 RA long axis: 5.2 cm LA A4 area: 29.9 cm2 RA area: 23.4 cm2 LA length (vol): 6.1 cm RA vol: 90.0 ml LA vol: 119.0 ml RA : 45.5 ml/m2 LA vol index: 60.1 ml/m2 IVC diam: 2.1 cm RVD1 (basal): 3.9 cm RVD2 (mid): 3.4 cm TAPSE: 2.2 cm Doppler Measurements & Calculations Ao V2 max: 124.5 cm/sec LVOT Max Tan: 100.6 cm/sec Ao V2 mean: 91.3 cm/sec LV V1 max P.0 mmHg Ao max P.2 mmHg LV V1 VTI: 19.9 cm Ao mean P.6 mmHg BETO(I,D): 3.5 cm2 Ao V2 VTI: 24.0 cm BETO(V,D): 3.4 cm2 sev ratio: 0.83 BETO indexed to BSA (cm^2/m^2): 1.8 MV E max tan: 67.0 cm/sec TR max tan: 278.8 cm/sec MV A max tan: 17.6 cm/sec TR max P.1 mmHg MV E/A: 3.8 PA V2 max: 55.5 cm/sec Med Peak E' Tan: 8.2 cm/sec PA V2 mean: 42.9 cm/sec E/E' med: 8.2 PA mean P.77 mmHg Lat Peak E' Tan: 5.6 cm/sec PA pr(Accel): 51.6 mmHg E/E' lat: 12.0 E/e' average: 10.1 MV dec time: 0.26 sec MR ERO: 0.09 cm2 MR PISA: 1.4 cm2 SV(LVOT): 83.6 ml MR flow rate: 47.8 cm3/sec MR PISA radius: 0.47 cm Reading Physician:12:52 PM
== END ==
PROVIDERS: Family Provider Student in an Organized Health Care Education/Training Program; PCP Student in an Organized Health Care Education/Training Program; Referring Provider Family Medicine; Visit Provider Family Medicine
DX: I08.3 Combined rheumatic disorders of mitral, aortic and tricuspid valves (principal); I77.810 Thoracic aortic ectasia; I77.89 Other specified disorders of arteries and arterioles; I48.91 Unspecified atrial fibrillation
CPT/HCPCS: 93306

== ENCOUNTER → 2024-07-21 08:30 | Outpatient (CLI) | payer MEDICARE, BC, SELFPAY ==
[2024-03-28 13:50] VITALS: BMI 22.4
[2024-07-21 09:00] LABS: Add Manual Diff / Slide Review NO; Basophils Absolute Auto 100 /uL (0-100); Basophils Percent Auto 1.3 % (0-2); Eosinophils Absolute Auto 400 /uL (0-450); Eosinophils Percent Auto 7.6 % (2-4); Hematocrit 44.5 % (41-53); Hemoglobin 14.6 g/dL (13.5-17.5); Lymphocytes Absolute Auto 1500 /uL (1100-4500); Lymphocytes Percent Auto 24.8 % (25-40); Mean Corpuscular HGB Conc 32.8 % (30-36); Mean Corpuscular Hemoglobin 29.3 PG (26-34); Mean Corpuscular Volume 89.3 fL (80-100); Monocytes Absolute Auto 400 /uL (0-900); Monocytes Percent Auto 7.4 % (3-14); Neutrophils Absolute Auto 3500 /uL (1500-7000); Neutrophils Percent Auto 58.9 % (50-75); Platelet Count 236 X10^3/uL (150-400); Red Blood Cell Count 4.98 X10^6/uL (4.5-5.9); Red Cell Distribution Width 13.6 % (11.6-14.8); White Blood Cell Count 5.9 X10^3/uL (4.5-11.0)
[2024-07-21 09:10] LABS: BUN Creatinine Ratio 28.8 (6-22); Blood Urea Nitrogen 23 mg/dL (9-20); Calcium 8.9 mg/dL (8.4-10.2); Carbon Dioxide 29 mmol/L (22-32); Chloride 102 mmol/L (98-107); Estimated Glomerular Filt Rate > 60 mL/min (>60); Glucose 140 mg/dL (80-110); HEMOLYSIS < 15 (0-50); Potassium 4.3 mmol/L (3.4-5.1); Sodium 137 mmol/L (137-145)
== END ==
LOC: LAB 08:31
PROVIDERS: Family Provider Student in an Organized Health Care Education/Training Program; PCP Family Medicine; Referring Provider Internal Medicine; Visit Provider Internal Medicine
DX: I48.19 Other persistent atrial fibrillation (principal)
CPT/HCPCS: 36415; 80048; 83735; 85025

== ENCOUNTER 2024-10-26 14:58 | Emergency (ER) | payer MEDICARE, BC, SELFPAY ==
[2024-03-28 13:50] VITALS: BMI 22.4
[2024-10-26 15:00] VITALS: BP 181/83; PULSE 81; RESP 13; TEMP 36.3; O2SAT 96; BMI 22.5
[2024-10-26] MEDS: TET,DIPH,PERTUSS(ACELL),VAC/PF 0.5 ML SYRINGE IM (15:10)
--- NOTE | 2024-10-26 15:24 | ED_ITS ---
HPI - Wound/Laceration <Jessica Clark PA-C - Last Filed: 10/26/24 17:16> General Chief Complaint: Wound/Laceration Stated Complaint: Cut Index finger Time Seen by Provider: 10/26/24 15:02 Source: patient Mode of arrival: Ambulatory History of Present Illness HPI narrative: Mr. Capellan is a very pleasant 79-year-old male with a past medical history of atrial fibrillation on Eliquis, hypertension, BPH who presents to the emergency department for right index finger laceration that occurred 30 minutes prior to arrival. Patient reports that he was working on 1 of his cars, using a utility knife with his left hand when he accidentally sliced the radial aspect of his right index finger. He is right-hand dominant. There is no involvement of the fingernail however he does have a good amount of bleeding and a flap-like laceration. He still has full range of motion of the right index finger, no numbness tingling or weakness and reports the pain is only mild. His Tdap is not up-to-date. Related Data Home Medications Medication Instructions Recorded Confirmed cholecalciferol (vitamin D3) 25 1,000 iu PO Q DAY ##0 11/03/10 03/28/24 mcg (1,000 unit) tablet (Vitamin D3) metronidazole 0.75 % topical cream 1 applic topical BID Rosacea 01/30/19 03/28/24 sildenafil (pulm.hypertension) 20 2 - 5 tab PO PRN PRN Erectile 01/30/19 03/28/24 mg tablet Dysfunction atorvastatin 10 mg tablet 10 mg PO BEDTIME 10/22/20 03/28/24 duloxetine 30 mg capsule,delayed 60 mg PO QAM 10/22/20 03/28/24 release losartan 25 mg tablet 25 mg PO DAILY 10/22/20 03/28/24 triamcinolone acetonide 55 mcg 1 spray intranasal DAILY 01/03/21 03/28/24 nasal spray aerosol (Nasacort) magnesium glycinate 100 mg (as 400 mg PO BEDTIME 03/28/24 03/28/24 glycinate) tablet polyethylene glycol 3350 17 gram 17 g PO DAILY PRN Constipation 03/28/24 03/28/24 oral powder packet (Miralax) psyllium husk 3.4 gram/5.4 gram 1 tbsp PO BID 03/28/24 03/28/24 oral powder (Metamucil) Previous Rx's Medication Instructions Recorded apixaban 5 mg tablet 5 mg PO BID #60 tabs 03/28/24 metoprolol tartrate 25 mg tablet 25 mg PO BID #60 tabs 03/28/24 Allergies Allergy/AdvReac Type Severity Reaction Status Date / Time ciprofloxacin Allergy Mild itching Verified 10/26/24 15:06 nickel Allergy Mild Rash Verified 10/26/24 15:06 tree and shrub pollen Allergy Mild Sneezing Verified 10/26/24 15:06 escitalopram AdvReac Mild lightheaded Verified 10/26/24 15:06 Review of Systems <Jessica Clark PA-C - Last Filed: 10/26/24 17:16> Review of Systems ROS Unobtainable: All systems reviewed & are unremarkable except as noted in HPI and below Patient History <Jessica Clark PA-C - Last Filed: 10/26/24 17:16> Medical History BPH loc w urin obs/LUTS Erectile dysfunction Osteoarthritis Meniere's disease Pneumonia Depression Actinic keratosis [place] (obstructive sleep apnea) Cataracts, bilateral SCC (squamous cell carcinoma) Thyroid tumor, benign (~1969) HTN (hypertension) HLD (hyperlipidemia) Inguinal hernia Anxiety Surgical History Hx of blepharoplasty Hx of left inguinal hernia repair History of surgery (~1997) Social History household members: none Previous occupational history: retired Smoking Status: Unknown if ever smoked alcohol intake: current Type(s) of exercise: walking and bicycling frequency: daily Smoking Status: Unknown if ever smoked tobacco type: cigarettes alcohol intake frequency: holidays/special occasions only Exam <Jessica Clark PA-C - Last Filed: 10/26/24 17:16> Narrative Exam Narrative: GENERAL: 79 year old patient appears stated age. Well-developed patient, in no acute distress. HEAD: Atraumatic. Normocephalic. CARDIOVASCULAR: Regular rate and rhythm. RESPIRATORY: ?Nonlabored respirations. ?Speaking in clear, full sentences. ? EXTREMITIES: 1.5 Flap like laceration on the radial aspect of the right index finger, overlying mid phalanx. No nail involvement. Deep structures intact. Oozing bleeding, no pulsatile bleeding. Patient still has sensation intact to light touch distal to the wound, brisk capillary refill, full flexion-extension of index finger. Strong, regular radial pulses BL. NEURO: AOx3. ?Clear speech. ?Moves all 4 extremities appropriately. Initial Vital Signs Initial Vital Signs: Vital Signs Temperature 97.4 F L 10/26/24 15:00 Pulse Rate 81 10/26/24 15:00 Respiratory Rate 13 10/26/24 15:00 Blood Pressure 181/83 H 10/26/24 15:00 Pulse Oximetry 96 10/26/24 15:00 Oxygen Delivery Method Room Air 10/26/24 15:00 <Adama Steen MD - Last Filed: 10/31/24 07:54> Initial Vital Signs Initial Vital Signs: Vital Signs Temperature 97.4 F L 10/26/24 15:00 Pulse Rate 81 10/26/24 15:00 Respiratory Rate 13 10/26/24 15:00 Blood Pressure 181/83 H 10/26/24 15:00 Pulse Oximetry 96 10/26/24 15:00 Oxygen Delivery Method Room Air 10/26/24 15:00 Procedures <Jessica Clark PA-C - Last Filed: 10/26/24 17:16> Laceration Repair Laceration 1: Time of procedure: 16:30 Site: hand (index finger) Side (If applicable): right Size (cm): 1.5 Description: flap Depth: simple, single layer Local Anesthetic: lidocaine 1% (1ml local, 4 ml for digital block) Pre-repair: wound explored, irrigated extensively (cleansed with betadine) and deep structures intact Skin layer closed with: nylon Skin layer suture size: 5-0 Number of sutures: 5 Course <Jessica Clark PA-C - Last Filed: 10/26/24 17:16> Orders Ordered: Discontinued Medications Bacitracin (Bacitracin Oint 0.9 Gm Pckt) 1 applic TOP NOW ONE Stop: 10/26/24 16:32 Last Admin: 10/26/24 16:52 Dose: 1 applic Documented By: OBINNA Cephalexin HCl (Cephalexin 250 Mg Capsule) 500 mg PO NOW ONE Stop: 10/26/24 16:32 Last Admin: 10/26/24 16:52 Dose: 500 mg Documented By: RB Diphtheria/Tetanus/Acell Pertussis (Tet,Diph,Pertuss(Acell),Vac/Pf 0.5 Ml Syringe) 0.5 ml IM .ONCE ONE Stop: 10/26/24 15:02 Last Admin: 10/26/24 15:10 Dose: 0.5 ml Documented By: RB Vital Signs Vital signs: Vital Signs - 8 hr 10/26/24 15:00 10/26/24 17:11 Temperature 97.4 F L 98.3 F Pulse Rate 81 82 Respiratory Rate 13 16 Blood Pressure 181/83 H 160/72 H Pulse Oximetry 96 99 Oxygen Delivery Method Room Air Room Air <Adama Steen MD - Last Filed: 10/31/24 07:54> Orders Ordered: Discontinued Medications Bacitracin (Bacitracin Oint 0.9 Gm Pckt) 1 applic TOP NOW ONE Stop: 10/26/24 16:32 Last Admin: 10/26/24 16:52 Dose: 1 applic Documented By: RB Cephalexin HCl (Cephalexin 250 Mg Capsule) 500 mg PO NOW ONE Stop: 10/26/24 16:32 Last Admin: 10/26/24 16:52 Dose: 500 mg Documented By: RB Diphtheria/Tetanus/Acell Pertussis (Tet,Diph,Pertuss(Acell),Vac/Pf 0.5 Ml Syringe) 0.5 ml IM .ONCE ONE Stop: 10/26/24 15:02 Last Admin: 10/26/24 15:10 Dose: 0.5 ml Documented By: RB Vital Signs Vital signs: Vital Signs - 8 hr 10/26/24 15:00 10/26/24 17:11 Temperature 97.4 F L 98.3 F Pulse Rate 81 82 Respiratory Rate 13 16 Blood Pressure 181/83 H 160/72 H Pulse Oximetry 96 99 Oxygen Delivery Method Room Air Room Air MDM - Wound/Laceration <Jessica Clark PA-C - Last Filed: 10/26/24 17:16> Medical Records Attestation: I reviewed the patient's medical records. Medical records narrative: ED visit 03/28/2024 for AFib RVR. Imaging Data Right Index Finger XR: My Impression: On my independent interpretation of the x-ray there is no obvious fracture or radiopaque foreign body. Radiologist's Impression: PROCEDURE: XR FINGER RT MIN 2V INDICATIONS: laceration right index finger TECHNIQUE: AP hand, 2 views of the 2nd finger(s) acquired. COMPARISON: None. FINDINGS: Bones: No fractures or dislocations. Mild degenerative change involving the 1st IP joint and 2nd PIP and 2nd and 3rd DIP joints and the base of the thumb. No suspicious bony lesions. Soft tissues: No suspicious soft tissue calcifications. IMPRESSION: No acute bony abnormality. Degenerative change. MDM Narrative Medical decision making narrative: 79-year-old male with a past medical history of atrial fibrillation on Eliquis, hypertension, BPH who presents to the emergency department for right index finger laceration that occurred 30 minutes prior to arrival. Differential diagnosis includes but is not limited to laceration, tuft fracture, contaminated wound, etc. On exam patient is in no acute distress, nontoxic appearing, vital signs appropriate except for elevated blood pressure. Patient has a flap laceration on his right index finger after cutting it with a knife. Tdap updated in the ED. We will proceed with digital block and extensive irrigation and laceration repair. X-ray negative for any acute bony abnormality or radiopaque foreign body. Procedure was completed using 5 simple interrupted sutures, recommended removal in 10-14 days, bacitracin and dressing was applied. Discussed proper wound care and strict ED return precautions. We will treat empirically with Keflex t.i.d. x5 days. Patient verbalized understanding of all information and is agreeable to the plan. He is stable for discharge home. Discharge Plan Departure Patient Disposition: Home Clinical Impression: Finger laceration Qualifiers: Encounter type: initial encounter Finger: index finger Damage to nail status: without damage Foreign body presence: without foreign body Laterality: right Qualified Code(s): S61.210A - Laceration without foreign body of right index finger without damage to nail, initial encounter Instructions: DI for Laceration Repair Activity Restrictions/Additional Instructions: Dear Mr. Capellan, Thank you for coming to the emergency department. Today you had a laceration to your right index finger. We have placed 5 sutures. They need to be removed in 10-14 days. You may do this in your doctor's office, the [id number], or here if necessary. Please keep the dressing on your wound clean, dry, and intact for the next 12-24 hours. After this time, you may remove the dressing and gently clean the wound with soap and water, then pat dry. Keep the wound clean and covered. Avoid soaking the wound in any water such as a bath, pool, or the ocean. If you develop any signs of wound infection such as increased redness, pus drainage, streaking redness, or fevers, please return to the ER immediately for evaluation. Once sutures are removed and the wound has healed, apply sunscreen daily to reduce the appearance of scars. We updated your tetanus shot today. Please follow up with your primary care doctor within the next 2-3 days for ER follow-up. (If you do not have a PCP you can call [phone]. ?to schedule an appointment with an [facility] Primary Care Provider) IF YOU DEVELOP ANY NEW OR WORSENING SYMPTOMS, RETURN TO THE ER! Please read the attached instructions, they highlight more specific treatments and interventions for you at home. Thank you for letting me participate in your care, Jessica Clark PA-C Prescriptions: No Action cholecalciferol (vitamin D3) [Vitamin D3] 1,000 UNIT tablet 1,000 iu PO Q DAY Qty: 0 polyethylene glycol 3350 [Miralax] 17 gram Powder In Packet 17 g PO DAILY PRN (Reason: Constipation) magnesium glycinate 100 mg Tablet 400 mg PO BEDTIME Metamucil 3.4 gram/5.4 gram Powder 1 tbsp PO BID Rx Instructions: mix into at least 8 oz of water or juice before administering metoprolol tartrate 25 mg Tablet 25 mg PO BID Qty: 60 0RF apixaban 5 mg tablet 5 mg PO BID Qty: 60 4RF metronidazole 0.75 % Cream 1 applic TOPICAL BID sildenafil (pulm.hypertension) 20 mg Tablet 2 - 5 tab PO PRN PRN (Reason: Erectile Dysfunction) atorvastatin 10 mg Tablet 10 mg PO BEDTIME losartan 25 mg Tablet 25 mg PO DAILY duloxetine 30 mg Capsule,Delayed Release(Dr/Ec) 60 mg PO QAM triamcinolone acetonide [Nasacort] 55 mcg aerosol,spray 1 spray intranasal DAILY Rx Instructions: administer into each nostril Referrals: Ozzie Wilson MD [Primary Care Provider] - Stand Alone Forms: Patient Portal/API/Survey ED Sign-out <Adama Steen MD - Last Filed: 10/31/24 07:54> Cosign ED Attending Cosignature Attestation: I was immediately available in the department for consultation. ?This documentation has been reviewed and I agree with assessment and plan. Supervised by Adama Steen MD
--- NOTE | 2024-10-26 15:24 | DI.RAD.S_ITS ---
PROCEDURE: XR FINGER RT MIN 2V INDICATIONS: laceration right index finger TECHNIQUE: AP hand, 2 views of the 2nd finger(s) acquired. COMPARISON: None. FINDINGS: Bones: No fractures or dislocations. Mild degenerative change involving the 1st IP joint and 2nd PIP and 2nd and 3rd DIP joints and the base of the thumb. No suspicious bony lesions. Soft tissues: No suspicious soft tissue calcifications. IMPRESSION: No acute bony abnormality. Degenerative change. Dictated by: Micah Messer M.D. on 10/26/2024 at 16:50 Approved by: Micah Messer M.D. on 10/26/2024 at 16:51
[2024-10-26] MEDS: BACITRACIN OINT 0.9 GM PCKT 1 APPLIC TOP (16:52)
[2024-10-26] MEDS: cephALEXin 250 MG CAPSULE 500 MG PO (16:52)
[2024-10-26 17:11] VITALS: BP 160/72; PULSE 82; RESP 16; TEMP 36.8; O2SAT 99
== END 2024-10-26 17:12 | disposition home or self-care (01) ==
PROVIDERS: Emergency Provider Physician Assistant; Family Provider Student in an Organized Health Care Education/Training Program; PCP Family Medicine
DX: S61.210A Laceration without foreign body of right index finger without damage to nail, initial encounter (principal); Z23 Encounter for immunization; W26.0XXA Contact with knife, initial encounter; Y93.89 Activity, other specified
CPT/HCPCS: 12001; 73140; 90471; 99284; 90715

== ENCOUNTER 2025-01-27 12:12 | Emergency (ER) | payer MEDICARE, BC, SELFPAY ==
[2024-03-28 13:50] VITALS: BMI 22.4
[2025-01-27 12:22] VITALS: BP 161/88; PULSE 83; RESP 20; TEMP 36.6; O2SAT 100; BMI 23.0
--- NOTE | 2025-01-27 12:31 | EKG_ITS ---
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
--- NOTE | 2025-01-27 12:32 | DI.RAD.S_ITS ---
PROCEDURE: XR CHEST 1V INDICATIONS: chest pain TECHNIQUE: One view of the chest was acquired. COMPARISON: [facility], CR, XR CHEST 1V, 03/28/2024, 7:48. FINDINGS: Surgical changes and devices: Monitoring device in the left chest wall. Lungs and pleura: Lungs are clear. No pleural effusions or pneumothorax. Mediastinum: Mild aortic tortuosity. Calcification of the aortic arch. Heart size is normal. Bones and chest wall: No suspicious bony lesions. Overlying soft tissues appear unremarkable. IMPRESSION: No acute cardiopulmonary abnormality is seen. Dictated by: Adama Bryson M.D. on 01/27/2025 at 11:59 Approved by: Adama Bryson M.D. on 01/27/2025 at 12:00
[2025-01-27 12:49] LABS: Add Manual Diff / Slide Review NO; Hematocrit 41.3 % (41-53); Hemoglobin 14.0 g/dL (13.5-17.5); Lymphocytes Absolute Auto 1400 /uL (1100-4500); Mean Corpuscular HGB Conc 34.0 % (30-36); Mean Corpuscular Hemoglobin 30.4 PG (26-34); Mean Corpuscular Volume 89.4 fL (80-100); Platelet Count 221 X10^3/uL (150-400)
[2025-01-27 12:55] LABS: Alanine Aminotransferase 25 IU/L (<50); Albumin 4.4 g/dL (3.5-5.0); Albumin Globulin Ratio 1.8 (1.0-2.8); Alkaline Phosphatase 66 U/L (38-126); Blood Urea Nitrogen 23 mg/dL (9-20); Calcium 9.5 mg/dL (8.4-10.2); Carbon Dioxide 32 mmol/L (22-32); Chloride 99 mmol/L (98-107); Creatine Kinase 66 U/L (55-170); Estimated Glomerular Filt Rate > 60 mL/min (>60); Globulin 2.4 g/dL (1.7-4.1); Glucose 102 mg/dL (70-99); HEMOLYSIS < 15 (0-50); Lipase 73 U/L (23-300); Potassium 4.2 mmol/L (3.4-5.1); Sodium 137 mmol/L (137-145); Total Protein 6.8 g/dL (6.3-8.2)
[2025-01-27 13:14] LABS: NT-proBNP (BNP-Adult 18+) 297 pg/mL (<450); Troponin I < 0.012 ng/mL (0.01-0.034)
--- NOTE | 2025-01-27 14:00 | ED.CHESTPAIN ---
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 Not exacerbated with exertion other than the fact that it increases his respiratory rate. He has had a prior ablation in August of this year and is followed by Cardiology at [facility]. There was no reproducible chest pain to palpation, not reporting fevers, chills, cough. Related Data Home Medications ?Medication ?Instructions ?Recorded ?Confirmed cholecalciferol (vitamin D3) 25 1,000 iu PO Q DAY ##0 11/03/10 03/28/24 mcg (1,000 unit) tablet (Vitamin D3) metronidazole 0.75 % topical cream 1 applic topical BID Rosacea 01/30/19 03/28/24 sildenafil (pulm.hypertension) 20 2 - 5 tab PO PRN PRN Erectile 01/30/19 03/28/24 mg tablet Dysfunction atorvastatin 10 mg tablet 10 mg PO BEDTIME 10/22/20 03/28/24 duloxetine 30 mg capsule,delayed 60 mg PO QAM 10/22/20 03/28/24 release losartan 25 mg tablet 25 mg PO DAILY 10/22/20 03/28/24 triamcinolone acetonide 55 mcg 1 spray intranasal DAILY 01/03/21 03/28/24 nasal spray aerosol (Nasacort) magnesium glycinate 100 mg (as 400 mg PO BEDTIME 03/28/24 03/28/24 glycinate) tablet polyethylene glycol 3350 17 gram 17 g PO DAILY PRN Constipation 03/28/24 03/28/24 oral powder packet (Miralax) psyllium husk 3.4 gram/5.4 gram 1 tbsp PO BID 03/28/24 03/28/24 oral powder (Metamucil) Previous Rx's ?Medication ?Instructions ?Recorded apixaban 5 mg tablet 5 mg PO BID #60 tabs 03/28/24 metoprolol tartrate 25 mg tablet 25 mg PO BID #60 tabs 03/28/24 methylprednisolone 4 mg tablets in See Rx Instructions PO .COMPLEX 01/27/25 a dose pack (Medrol (Mina)) #21 ea Allergies Allergy/AdvReac Type Severity Reaction Status Date / Time ciprofloxacin Allergy Mild itching Verified 01/27/25 12:23 nickel Allergy Mild Rash Verified 01/27/25 12:23 tree and shrub pollen Allergy Mild Sneezing Verified 01/27/25 12:23 escitalopram AdvReac Mild lightheaded Verified 01/27/25 12:23 Review of Systems Review of Systems Narrative: Pertinent positive and negative findings as per HPI Patient History Medical History BPH loc w urin obs/LUTS Erectile dysfunction Osteoarthritis Meniere's disease Pneumonia Depression Actinic keratosis [place] (obstructive sleep apnea) Cataracts, bilateral SCC (squamous cell carcinoma) Thyroid tumor, benign (~1969) HTN (hypertension) HLD (hyperlipidemia) Inguinal hernia Anxiety Surgical History Hx of blepharoplasty Hx of left inguinal hernia repair History of surgery (~1997) Social History household members: none Previous occupational history: retired Smoking Status: Former smoker alcohol intake: current Type(s) of exercise: walking and bicycling frequency: daily Smoking Status: Former smoker tobacco type: cigarettes alcohol intake frequency: holidays/special occasions only Exam Initial Vital Signs Initial Vital Signs: Vital Signs Temperature 98 F 01/27/25 12:22 Pulse Rate 83 01/27/25 12:22 Respiratory Rate 20 01/27/25 12:22 Blood Pressure 161/88 H 01/27/25 12:22 Pulse Oximetry 100 01/27/25 12:22 Oxygen Delivery Method Room Air 01/27/25 12:22 General: Healthy appearing, in no acute distress. Able to give a complete and coherent history. Well-nourished well-developed HEENT: Moist mucous membranes, normal sclera with reactive pupils, Respiratory: Lungs are clear to auscultation, with pain complaints on deep inhalation, no wheezing no rales no rhonchi. Full and symmetrical air movement Cardiac: Regular rate and rhythm no murmurs no bruits Abdomen: Soft, nontender, no rebound or guarding, no flank pain Skin: Warm and dry, no rashes Neurologic: Grossly neurologically intact with no obvious asymmetries or abnormalities Extremities: No trauma, no lower extremity edema Psych: Cooperative, appropriate insight and affect Course Orders Ordered: ED Orders 01/27/25 12:32 XR chest 1V Stat EKG-12 Lead Stat 01/27/25 12:34 Complete Blood Count AUTO DIFF Stat Comprehensive Metabolic Panel Stat Lipase Stat NT-proBNP (BNP-Adult 18+) Stat Troponin & CK Cardiac Panel Stat Sodium Chloride (Normal Saline 0.9%) 1,000 mls @ 150 mls/hr IV CONT IVON Discontinued Medications Aspirin (Aspirin 81 Mg Chew Tab) 324 mg PO NOW ONE Stop: 01/27/25 12:33 Methylprednisolone (Methylprednisolone 125 Mg/2 Ml Vial) 125 mg IV NOW ONE Stop: 01/27/25 14:08 Vital Signs Vital signs: Vital Signs - 8 hr 01/27/25 12:22 Temperature 98 F Pulse Rate 83 Respiratory Rate 20 Blood Pressure 161/88 H Pulse Oximetry 100 Oxygen Delivery Method Room Air MDM - Chest Pain Lab Data 01/27/25 12:34 01/27/25 12:34 Labs: Lab Results 01/27/25 Range/Units 12:34 WBC 7.5 (4.5-11.0) X10^3/uL RBC 4.62 (4.5-5.9) X10^6/uL Hgb 14.0 (13.5-17.5) g/dL Hct 41.3 (41-53) % MCV 89.4 (80-100) fL MCH 30.4 (26-34) PG MCHC 34.0 (30-36) % RDW 12.9 (11.6-14.8) % Plt Count 221 (150-400) X10^3/uL Neut % (Auto) 64.7 (50-75) % Lymph % (Auto) 19.3 L (25-40) % Sunflower % (Auto) 8.3 (3-14) % Eos % (Auto) 7.0 H (2-4) % Baso % (Auto) 0.7 (0-2) % Neut # (Auto) 4800 (1946-9044) /uL Lymph # (Auto) 1400 (4735-0849) /uL Sunflower # (Auto) 600 (0-900) /uL Eos # (Auto) 500 H (0-450) /uL Baso # (Auto) 100 (0-100) /uL Sodium 137 (137-145) mmol/L Potassium 4.2 (3.4-5.1) mmol/L Chloride 99 (98-107) mmol/L Carbon Dioxide 32 (22-32) mmol/L BUN 23 H (9-20) mg/dL Creatinine 0.68 (0.66-1.25) mg/dL Estimated GFR > 60 (>60) mL/min BUN/Creatinine Ratio 33.8 H (6-22) Glucose 102 H (70-99) mg/dL Calcium 9.5 (8.4-10.2) mg/dL Total Bilirubin 0.6 (0.2-1.3) mg/dL AST 32 (17-59) IU/L ALT 25 (<50) IU/L Alkaline Phosphatase 66 (38-126) U/L Total Creatine Kinase 66 (55-170) U/L Troponin I < 0.012 (0.01-0.034) ng/mL NT-Pro-B Natriuret Pep 297 (<450) pg/mL Total Protein 6.8 (6.3-8.2) g/dL Albumin 4.4 (3.5-5.0) g/dL Globulin 2.4 (1.7-4.1) g/dL Albumin/Globulin Ratio 1.8 (1.0-2.8) Lipase 73 (23-300) U/L MDM Narrative Medical decision making narrative: CC: Left-sided chest pain starting this morning worse with deep breathing Complicating co-morbidities: History of atrial fibrillation, hypertension, hyperlipidemia post cardiac ablation Data collected from: patient Medical records reviewed: Discharge summary from March of 2024 with admission for atrial fibrillation is reviewed Differential considered: Pneumothorax, pleurisy, pneumonia, doubt acute coronary syndrome, doubt pulmonary embolus Exam documented above, pertinent findings include: Aside from pain with deep breathing his exam is otherwise benign Lab Test results independently reviewed as above. Pertinent findings: CBC is unremarkable Chemistries are reassuring with normal renal function, Troponin is undetected ProBNP is normal Independently reviewed EKG: Sinus rhythm at a rate of 76 with no acute ischemic changes Imaging studies independently reviewed: Chest x-ray is unremarkable Treatments: IV Solu-Medrol Re-evaluations: On re-evaluation and explaining findings patient does note that he has had a mild nonproductive cough for the last 48 hours or so. No fevers Discussion: 79-year-old gentleman presents with left-sided chest pain worse with deep breathing. No evidence of acute coronary syndrome, pneumonia, pneumothorax, congestive heart failure or alternate explanation that would require further workup or hospitalization today. Due to his anticoagulation he can not take nonsteroidals. We will put him on a brief course of Solu-Medrol, prescription we will be sent. He can mix this with Tylenol. All questions were answered, he is safe for discharge Discharge Plan Departure Patient Disposition: Home Clinical Impression: Pleurisy Instructions: DI for Pleurisy Activity Restrictions/Additional Instructions: Thank you for coming into You are not having any signs of heart attack or heart failure. There was no evidence of acute pneumonia or collapsed lung. The remainder of your blood work is equally reassuring. With pain on deep breathing such as your describing, all of the other heart problems ruled out, the most likely diagnosis at this point is pleuritic chest pain. There is likely some inflammation around your left lung that is causing this. I do not know why this started acutely this morning. Typically once started it will take between 5 and 10 days to improve. Anti-inflammatories are the typical treatment however you can not use ibuprofen or Naprosyn while you are on an anticoagulant. I have given you a dose of IV Solu-Medrol, steroid in the emergency department and will discharge you home with a Medrol Dosepak, decreasing dose of steroid over the next couple of days to help with the inflammation and pain. You can combine this with Tylenol If you find that you are getting worse or develop any new symptoms, please feel free to return to the emergency department for further evaluation. Prescriptions: New methylprednisolone [Medrol (Mina)] 4 mg tablets,dose pack See Rx Instructions .ROUTE .COMPLEX Qty: 21 0RF Rx Instructions: orally per package directions No Action cholecalciferol (vitamin D3) [Vitamin D3] 1,000 UNIT tablet 1,000 iu PO Q DAY Qty: 0 polyethylene glycol 3350 [Miralax] 17 gram Powder In Packet 17 g PO DAILY PRN (Reason: Constipation) magnesium glycinate 100 mg Tablet 400 mg PO BEDTIME Metamucil 3.4 gram/5.4 gram Powder 1 tbsp PO BID Rx Instructions: mix into at least 8 oz of water or juice before administering metoprolol tartrate 25 mg Tablet 25 mg PO BID Qty: 60 0RF apixaban 5 mg tablet 5 mg PO BID Qty: 60 4RF metronidazole 0.75 % Cream 1 applic TOPICAL BID sildenafil (pulm.hypertension) 20 mg Tablet 2 - 5 tab PO PRN PRN (Reason: Erectile Dysfunction) atorvastatin 10 mg Tablet 10 mg PO BEDTIME losartan 25 mg Tablet 25 mg PO DAILY duloxetine 30 mg Capsule,Delayed Release(Dr/Ec) 60 mg PO QAM triamcinolone acetonide [Nasacort] 55 mcg aerosol,spray 1 spray intranasal DAILY Rx Instructions: administer into each nostril Referrals: Ozzie Wilson MD [Primary Care Provider, Family Practice] Stand Alone Forms: Patient Portal/API
[2025-01-27 15:28] VITALS: BP 186/103; PULSE 63; RESP 16; O2SAT 100
[2025-01-27] MEDS: LOSARTAN 25 MG TABLET PO (15:42)
--- NOTE | 2025-01-27 15:46 | PC.NURSE ---
Pain with deep breaths.
== END 2025-01-27 15:44 | disposition home or self-care (01) ==
PROVIDERS: Emergency Provider Emergency Medicine; Family Provider Student in an Organized Health Care Education/Training Program; PCP Family Medicine
DX: R09.1 Pleurisy (principal)
CPT/HCPCS: 71045; 80053; 82550; 83690; 83880; 84484; 85025; 93005; 96374; 99284; J2919